=== PATIENT | male | born 1960 | race Caucasian/White ===

== ENCOUNTER 2020-03-23 20:12 | Emergency (ER) | payer OTHER, SELFPAY ==
[2020-03-23 20:14] VITALS: BP 171/95; PULSE 88; RESP 20; TEMP 36.7; O2SAT 99
--- NOTE | 2020-03-23 21:09 | ED.EXTPRO ---
HPI - Extremity Problem General Chief complaint: Extremity Problem,Nontraumatic Stated complaint: bruise on leg Time Seen by Provider: 03/23/20 20:39 History of Present Illness HPI Narrative: Patient is a 59-year-old male who presents the ER with bruising to the posterior thigh on the right side. Noticed it tonight. Noticed in the center area others induration and a scratch. No fevers or chills or sweats. No evidence of cellulitis. Patient denies any known trauma to the lower extremity over the last couple of weeks. The bruising is dark purple as well as yellow and green in areas and is circular in appearance. The central area in the bruise is free of any sort of bruising. It gives the appearance patient was struck with a circular object. There is an additional bruise to the lateral right calf. No lower extremity swelling. No history of blood clots. No chest pain or shortness of breath or loss of consciousness. Related Data Allergies Allergy/AdvReac Type Severity Reaction Status Date / Time No Known Allergies Allergy Verified 03/23/20 20:19 Review of Systems Review of Systems: All systems reviewed & are unremarkable except as noted in HPI and below Integumentary/Breasts: Comments: Right lower extremity bruising and abrasion PMFSH Past Medical History Medical History (Updated 03/23/20 @ 21:37 by Henrique Colmenares MD) No pertinent past medical history Surgical History Surgical History (Updated 03/23/20 @ 21:10 by Henrique Colmenares MD) No pertinent past surgical history Social History Social History (Updated 03/23/20 @ 21:10 by Henrique Colmenares MD) Smoking status: Never smoker Exam Narrative: Exam Narrative: GENERAL: Well-appearing, well-nourished, and in no acute distress. HEAD: Normocephalic, atraumatic. HEART: Regular rate and rhythm. Normal lower extremity pulses. EXTREMITIES: Normal range of motion. No edema. Right posterior thigh has a palpable cord beneath a abrasion in the center of the bruise. No cellulitis or abscess. Cord is nontender SKIN: Warm, dry, contusion posterior right thigh with a central area of clearing the size of a tennis ball. Bruising itself is dark purple with yellow/green the periphery. There is additional yellowing bruise to the right lateral calf no bigger than a nickel. NEURO: Alert and oriented x3. PSYCH: Normal mood and affect. Course Course Emergency Course: Spoke with patient's PCP. We will follow-up results from ultrasound. Patient should come back at 7 AM. Patient verbalized understanding. Vital Signs Vital signs: Vital Signs Temperature 98.0 F 03/23/20 20:14 Pulse Rate 88 03/23/20 20:14 Respiratory Rate 20 03/23/20 20:14 Blood Pressure 171/95 H 03/23/20 20:14 Pulse Oximetry 99 03/23/20 20:14 Temperature 98.0 F 03/23/20 20:14 Pulse Rate 88 03/23/20 20:14 Respiratory Rate 20 03/23/20 20:14 Blood Pressure 171/95 H 03/23/20 20:14 Pulse Oximetry 99 03/23/20 20:14 Discharge Plan Discharge Clinical Impression: Contusion of leg, right Patient Disposition: Home, Self-Care Condition: Stable Instructions: Contusion in Adults (ED) Additional Instructions: You have a bruise to your right thigh. The central area is hard and may represent a clotted off superficial vein. You are receiving a ultrasound tomorrow morning at 7 AM to rule out a deep vein thrombosis. The results will be sent to your primary care physician's office. If you do not hear about your results by noon you should contact your primary care doctor's office. Return to the ER immediately should you develop chest pain or shortness of breath, you cannot keep down food or water, or you have additional concerns. Other Ambulatory Orders: US venous doppler LE RT (Routine) Timeframe: [id number] Location: Determined by Patient Ordered By: Henrique Colmenares Follow-up/Referrals: PHYSICIAN NOT ON STAFF,NONSTAFF [Primary Care Provider] - 1 Da
--- NOTE | 2020-03-23 21:20 | PC.NURSE ---
Abbi Doppler of RLE Ultrasound ordered for 7am tomorrow
[2020-03-23 21:51] VITALS: BP 131/80; PULSE 80; RESP 19; TEMP 36.2; O2SAT 100
== END 2020-03-23 21:52 | disposition home or self-care (01) ==
PROVIDERS: Emergency Provider Emergency Medicine; PCP Internal Medicine
DX: S70.11XA Contusion of right thigh, initial encounter (principal); X58.XXXA Exposure to other specified factors, initial encounter
CPT/HCPCS: 99282

== ENCOUNTER 2020-03-24 06:37 | Outpatient (CLI) | payer OTHER, SELFPAY ==
--- NOTE | ~2020-03-24 | US_ITS ---
EXAMINATION: US venous doppler LE RT DATE: 03/24/2020 07:27 INDICATION: Right lower extremity swelling. TECHNIQUE: Grayscale ultrasound images without and with compression and Doppler ultrasound images of the right lower extremity veins were obtained. COMPARISON: None. FINDINGS: The visualized portions of right common femoral vein, profunda (deep) femoral vein, femoral vein, pop liteal vein, peroneal veins, posterior tibial veins, and greater saphenous vein outflow are patent. IMPRESSION: 1. No deep venous thrombosis. Reviewed, dictated and finalized at location A.
== END 2020-03-24 06:38 | disposition home or self-care (01) ==
PROVIDERS: Visit Provider Emergency Medicine
DX: S80.11XA Contusion of right lower leg, initial encounter (principal)
CPT/HCPCS: 93971

== ENCOUNTER 2025-02-10 14:12 | Outpatient (CLI) | payer OTHER, SELFPAY ==
--- NOTE | ~2025-02-10 | XR_ITS ---
EXAMINATION: XR chest 2V 02/10/2025 14:51 INDICATION: Rib pain after fall PROCEDURE: 2 view chest COMPARISON: No prior studies for comparison. FINDINGS: There is left basilar atelectasis. No focal pneumonia, edema, pleural effusion or pneumotho rax. The cardiomediastinal silhouette is within normal limits. There are no pleural effusions. Ther e is no pneumothorax suspected. IMPRESSION: 1: Left basilar atelectasis. Reviewed, dictated and finalized at location A.
--- NOTE | ~2025-02-10 | XR_ITS ---
XR shoulder LT min 2V 02/10/2025 14:51 Indication: Left shoulder pain Procedure: 5 views left shoulder Comparison: No prior studies for comparison. Findings: There is polyarticular osteoarthritis. No fracture, subluxation or dislocation. No signific ant soft tissue abnormality. No foreign. Impression: 1: Mild polyarticular osteoarthritis. Reviewed, dictated and finalized at location A. Impression: 1: Mild polyarticular osteoarthritis.
--- OUTSIDE RECORDS SUMMARY | 2025-02-10 14:49 | XMS_ITS | Referral Summary ---
Author Organization [facility] Address [address] [place] [address] Care Team Providers Care Harness Brusher Name Role Phone Michael Wiggins MD Primary Care Provider [phone] Encounters Date Type Department Care Team Description 02/10/2025 Nurse Triage [facility] Medical [facility] Internal Medicine [address] [place] [address] [address] [place] [phone] Michael Wiggins MD Acute pain of left shoulder (Primary Dx); Rib pain; Fall, initial encounter 02/01/2025 Results Follow-Up [facility] Nephrology at [address] [address] Elkin Juan MD 01/31/2025 Results Follow-Up [facility] Nephrology at [address] [address] Elkin Juan MD Stage 3a chronic kidney disease (HCC) (Primary Dx) 01/29/2025 Orders Only [facility] Nephrology at [address] [address] Elkin Juan MD 01/27/2025 10:30 AM CDT Office Visit [facility] Nephrology at [address] [address] Elkin Juan MD Stage 3a chronic kidney disease (HCC) (Primary Dx); Renal cysts, acquired, bilateral; Essential hypertension; Pancreas cyst; Obstructive sleep apnea 01/06/2025 Results Follow-Up [facility] Medical [facility] Nephrology at [address] [place] [address] Elkin Juan MD 01/04/2025 7:24 PM HOME ORGANIZER - 01/04/2025 11:59 PM HOME ORGANIZER Hospital Encounter [facility] MRI [address] [place] [address] Pancreas cyst Discharge Disposition: Discharge to home or self care 12/13/2024 4:15 PM HOME ORGANIZER Office Visit [facility] Internal Medicine [address] [place] [address] Michael Wiggins MD Dyslipidemia (Primary Dx); Hypertensive kidney disease; Morbid obesity (HCC); LON (obstructive sleep apnea); Stage 3a chronic kidney disease (HCC); BMI 36.0-36.9,adult; Encounter for immunization; Rotator cuff tear arthropathy of right shoulder; Prostate cancer screening 12/08/2024 Telephone [facility] Gastroenterology at [address] [place] [address] Elkin Juan MD from Last 3 Months Allergies No known active allergies Medications doxazosin (CARDURA) 4 mg tablet TAKE 1 TABLET DAILY 90 tablet 3 4 Active amLODIPine (NORVASC) 10 mg tablet TAKE 1 TABLET DAILY 90 tablet 3 4 Active olmesartan (BENICAR) 40 mg tablet Take 1 tablet (40 mg total) by mouth daily 90 tablet 3 4 05/05/20 25 Active traMADol-acetami nophen (ULTRACET) 37.5-325 mg per tablet Take 1 tablet by mouth every 6 (six) hours as needed for pain for pain 270 tablet 1 5 Active cholecalciferol (VITAMIN D-3) 2000 unit capsule Take 1 capsule (2,000 Units total) by mouth daily 90 capsule 3 5 01/28/20 26 Active sodium bicarbonate 650 mg tabletIndication s:Stage 3a chronic kidney disease (HCC) Take 2 tablets (1,300 mg total) by mouth 2 (two) times a day 5 02/04/20 26 Active cholecalciferol (VITAMIN D-3) 2000 unit capsule Take 1 capsule (2,000 Units total) by mouth daily 90 capsule 3 4 01/28/20 25 Discontinu ed(Reorder ) sodium bicarbonate 650 mg tablet 5 01/28/20 25 Discontinu ed(Reorder ) sodium bicarbonate 650 mg tablet Take 1 tablet (650 mg total) by mouth 3 (three) times a day 270 tablet 3 5 02/04/20 25 Discontinu ed(Reorder ) Active Problems Problem Noted Date Diagnosed Date Chronic bilateral low back pain without sciatica 07/05/2024 Assessment & Plan (07/05/2024 8:34 AM CDT): Patient with history of lumbar fusion. He continues to have chronic back pain. He takes tramadol as needed. I told him to start to cut down on the frequency of taking the medication and see how that works for him. Trigger finger, left index finger 10/06/2023 Trigger index finger of left hand 09/12/2023 Assessment & Plan (09/12/2023 8:22 AM CDT): Patient has left index trigger finger. Will make him hand surgery referral Stage 3a chronic kidney disease 05/12/2023 Assessment & Plan (12/13/2024 5:44 PM HOME ORGANIZER): Continue Farxiga. Avoid NSAIDs. Followed by the sap consultant Assessment & Plan (07/05/2024 7:26 AM CDT): Continue Farxiga. Avoid NSAIDs. Followed by the sap consultant Assessment & Plan (01/16/2024 7:40 AM HOME ORGANIZER): Continue Farxiga. Avoid NSAIDs. Followed by the sap consultant Assessment & Plan (09/12/2023 7:58 AM CDT): Continue Farxiga. Avoid NSAIDs. Followed by the sap consultant Assessment & Plan (05/12/2023 8:38 AM CDT): Patient with persistent chronic kidney disease. He increase fluid intake. He does not use NSAIDs. Will start him on Farxiga 10 mg daily. Will make him a referral to see a sap consultant for further evaluation. Open wound of finger with tendon injury 01/24/20 Overview (01/23/2023): Added automatically from request for surgery [id number] Trigger finger of right thumb 09/05/2022 Overview (09/05/2022): Added automatically from request for surgery [id number] Carpal tunnel syndrome, right 09/04/2022 Right wrist pain 09/04/2022 Morbid obesity 03/14/2022 Assessment & Plan (12/13/2024 5:44 PM HOME ORGANIZER): BMI Follow-up includes: nutrition counseling. The patient was advised to exercise 5 times a week for 30 minutes each time. We discussed low calorie diet. Discussed lifestyle changes. Assessment & Plan (07/05/2024 7:26 AM CDT): BMI Follow-up includes: nutrition counseling. The patient was advised to exercise 5 times a week for 30 minutes each time. We discussed low calorie diet. Discussed lifestyle changes. Assessment & Plan (01/16/2024 7:40 AM HOME ORGANIZER): BMI Follow-up includes: nutrition counseling. The patient was advised to exercise 5 times a week for 30 minutes each time. We discussed low calorie diet. Discussed lifestyle changes. Assessment & Plan (11/18/2022 8:59 AM HOME ORGANIZER): BMI Follow-up includes: nutrition counseling. The patient was advised to exercise 5 times a week for 30 minutes each time. We discussed low calorie diet. Discussed lifestyle changes. Assessment & Plan (03/14/2022 9:05 AM CDT): BMI Follow-up includes: nutrition counseling. The patient was advised to exercise 5 times a week for 30 minutes each time. We discussed low calorie diet. Discussed lifestyle changes. Complete rupture of rotator cuff 05/31/2021 Rotator cuff tear arthropathy of right shoulder 05/31/2021 Assessment & Plan (12/13/2024 5:44 PM HOME ORGANIZER): Patient will see a different orthopedic surgeon for 2nd opinion Assessment & Plan (11/18/2022 7:47 AM HOME ORGANIZER): Patient takes tramadol as needed. He was followed by orthopedic doctor. He is not interested in surgery at this time. LON (obstructive sleep apnea) 03/06/2021 Assessment & Plan (12/13/2024 5:44 PM HOME ORGANIZER): Patient uses CPAP machine on regular basis Assessment & Plan (07/05/2024 7:26 AM CDT): Patient uses CPAP machine on regular basis Assessment & Plan (01/16/2024 7:40 AM HOME ORGANIZER): Patient uses CPAP machine on regular basis Assessment & Plan (05/12/2023 8:38 AM CDT): Patient uses CPAP machine on regular basis Assessment & Plan (11/18/2022 7:46 AM HOME ORGANIZER): Patient uses CPAP machine on regular basis Assessment & Plan (08/06/2022 11:13 AM CDT): Continue to use CPAP machine Assessment & Plan (03/14/2022 9:05 AM CDT): Patient uses CPAP machine on regular basis Assessment & Plan (08/31/2021 10:42 AM CDT): Patient uses CPAP machine on regular basis Assessment & Plan (03/06/2021 9:00 AM CDT): Patient uses CPAP machine on regular basis Carpal tunnel syndrome, bilateral 10/11/2020 Overview (05/17/2024): Status post bilateral carpal tunnel release Right carpal tunnel syndrome 10/11/2020 Assessment & Plan (03/06/2021 9:00 AM CDT): Status post carpal tunnel surgery Right shoulder tendinitis 09/05/2020 Assessment & Plan (07/05/2024 7:27 AM CDT): Patient is followed by orthopedic doctor. He wants to wait on surgery. He takes tramadol as needed with good relief Assessment & Plan (03/06/2021 8:59 AM CDT): Patient is followed by orthopedic doctor. He wants to wait on surgery. He takes tramadol as needed with good relief Assessment & Plan (09/05/2020 9:55 AM CDT): We ordered MRI of the right shoulder for further evaluation and further recommendations will depend on the result of the MRI Trigger ring finger of right hand 09/05/2020 Assessment & Plan (09/05/2020 9:56 AM CDT): The patient received steroid injection in the tendon sheath of the right ring finger and he tolerated the procedure well. The patient will call us in 1 week for persistent symptoms. Bruise 03/28/2020 Assessment & Plan (03/28/2020 10:21 AM CDT): Bruise in the right thigh secondary to injury and it is healing and no further intervention is needed Chronic pain of both shoulders 03/28/2020 Assessment & Plan (01/16/2024 8:42 AM HOME ORGANIZER): Patient is maintained on tramadol p.r.n. with good relief Assessment & Plan (09/12/2023 7:57 AM CDT): Patient is maintained on tramadol p.r.n. with good relief Assessment & Plan (08/28/2020 12:10 PM CDT): Will obtain x-ray of the right shoulder and will start him on physical therapy and he will continue with tramadol as needed for pain and the patient will call us for persistent symptoms Assessment & Plan (03/28/2020 10:21 AM CDT): Patient takes tramadol with good relief. Hypertensive kidney disease 06/08/2018 Assessment & Plan (12/13/2024 5:43 PM HOME ORGANIZER): Continue current medications. Discussed low-salt diet. Discussed exercise on regular basis. Will continue to monitor Assessment & Plan (07/05/2024 7:26 AM CDT): Continue current medications. Discussed low-salt diet. Discussed exercise on regular basis. Will continue to monitor Assessment & Plan (01/16/2024 7:39 AM HOME ORGANIZER): Continue current medications. Discussed low-salt diet. Discussed exercise on regular basis. Will continue to monitor Assessment & Plan (09/12/2023 7:57 AM CDT): Continue current medications. Discussed low-salt diet. Discussed exercise on regular basis. Will continue to monitor Assessment & Plan (05/12/2023 8:37 AM CDT): Continue current medications. Discussed low-salt diet. Discussed exercise on regular basis. Will continue to monitor Assessment & Plan (11/18/2022 7:46 AM HOME ORGANIZER): Continue current medications. Discussed low-salt diet. Discussed exercise on regular basis. Will continue to monitor Assessment & Plan (08/06/2022 11:13 AM CDT): Continue current medications. Discussed low-salt diet. Discussed exercise on regular basis. Will continue to monitor Assessment & Plan (03/14/2022 9:05 AM CDT): Continue current medications. Discussed low-salt diet. Discussed exercise on regular basis. Will continue to monitor Assessment & Plan (08/31/2021 10:42 AM CDT): Continue current medications. Discussed low-salt diet. Discussed exercise on regular basis. Will continue to monitor Assessment & Plan (03/06/2021 8:59 AM CDT): Continue current medications. Discussed low-salt diet. Discussed exercise on regular basis. Will continue to monitor Assessment & Plan (08/28/2020 12:11 PM CDT): We stopped lisinopril hydrochlorothiazide because of elevated creatinine. We will start him on Benicar and he will continue with other medications Assessment & Plan (03/28/2020 10:21 AM CDT): Continue current medications. Discussed low-salt diet. Discussed exercise on regular basis. Will continue to monitor Assessment & Plan (08/30/2019 8:15 AM CDT): Continue current medications. Discussed low-salt diet. Discussed exercise on regular basis. Will continue to monitor Assessment & Plan (02/23/2019 8:46 AM CDT): Continue current medications. Discussed low-salt diet. Discussed exercise on regular basis. Will continue to monitor Anxiety 08/09/2016 Assessment & Plan (01/16/2024 7:39 AM HOME ORGANIZER): Asymptomatic Assessment & Plan (05/12/2023 8:37 AM CDT): Asymptomatic Assessment & Plan (03/14/2022 9:05 AM CDT): Stable without medication Assessment & Plan (08/31/2021 10:42 AM CDT): Stable without medications Assessment & Plan (03/06/2021 8:59 AM CDT): Patient with anxiety. Will start him on Cymbalta 20 mg daily and will evaluate him again in few months Assessment & Plan (02/23/2019 8:45 AM CDT): Stable off medications Dyslipidemia 08/09/2016 Assessment & Plan (12/13/2024 5:43 PM HOME ORGANIZER): Continue low-fat diet and exercise Assessment & Plan (01/16/2024 7:39 AM HOME ORGANIZER): Continue low-fat diet and exercise Assessment & Plan (05/12/2023 8:37 AM CDT): Continue low-fat diet and exercise Assessment & Plan (11/18/2022 7:46 AM HOME ORGANIZER): Controlled on current medications. Continue low-fat diet. Will continue to monitor . Assessment & Plan (08/06/2022 11:13 AM CDT): Continue low-fat diet and continue to exercise on regular basis Assessment & Plan (03/14/2022 9:05 AM CDT): Advised low-fat diet and weight loss and exercise on regular basis Assessment & Plan (08/31/2021 10:42 AM CDT): Continue low-fat diet and we discussed the importance of weight loss with diet and exercise Assessment & Plan (03/06/2021 8:59 AM CDT): Continue low-fat diet Assessment & Plan (08/28/2020 12:13 PM CDT): Controlled on low-fat diet and exercise Assessment & Plan (03/28/2020 10:20 AM CDT): Controlled continue low-fat diet and we discussed the importance of weight loss Assessment & Plan (08/30/2019 8:15 AM CDT): Continue low-fat diet and exercise on regular basis. Assessment & Plan (02/23/2019 8:46 AM CDT): Continue low-fat diet and we discussed weight loss Numbness of right hand 08/09/2016 Assessment & Plan (08/06/2022 11:13 AM CDT): Patient most likely has carpal tunnel syndrome. I recommended that he uses a wrist brace. Will obtain nerve conduction study and if it is positive will make him a referral to see hand surgeon Assessment & Plan (08/28/2020 12:11 PM CDT): The patient most likely has carpal tunnel syndrome. He was advised to use wrist brace and we will order ENG-EMG study for further evaluation ED (erectile dysfunction) 08/09/2016 Immunizations Immunization Administration Dates Next Due Influenza, Quadrivalent, Spl it, Preservative Free, Intramuscular 08/06/2022,08/31/2021,08/28/2020,08/30 Tdap 01/20/2023,03/14/2022 Social History Tobacco Use Types Packs/Day Years Used Date Smoking Tobacco: Never Passive Smoke Exposure: Never Smokeless Tobacco: Never Tobacco Cessation:Counseling Given: Not Answered Alcohol Use Standard Drinks/Week Comments Not Currently 0 (1 standard drink = 0.6 oz pur e alcohol) AUDIT-C Answer Date Recorded Q1: How often do you have a drink containing alcohol? Never 12/13/2024 Q2: How many drinks containi ng alcohol do you have on a typical day when you are drinking? Patient does not drink Q3: How often do you have si x or more drinks on one occasion? Never 12/13/2024 PHQ-2 Answer Date Recorded PHQ-2 Total Score (If total score is 3 or more points, staff should administer the PHQ-9) 0 12/13/2024 Personal Safety Answer Date Recorded Have you ever been in or are you currently in a harmful physical or emotional relationship or is someone making you feel afraid or unsafe? 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 on file Not on f ile Last Filed Vital Signs Vital Sign Reading Time Taken Comments Blood Pressure 126/80 01/27/2025 10:14 AM CDT Pulse 73 01/27/2025 10:14 AM CDT Temperature 36.1 C (97 F) 01/27/2025 10:14 AM CDT Respiratory Rate 16 12/13/2024 4:16 PM HOME ORGANIZER Oxygen Saturation 98% 12/13/2024 4:16 PM HOME ORGANIZER Inhaled Oxygen Concentration - - Weight 113.4 kg (250 lb) 01/27/2025 10:14 AM CDT Height 177.8 cm (5' 10 ) 01/27/2025 10:14 AM CDT Body Mass Index 35.87 01/27/2025 10:14 AM CDT Plan of Treatment Not on file Procedures Procedure Name Priority Date/Time Associated Diagnosis Comments ALBUMIN CREATININE RATIO, URINE Routine 01/31/2025 9:54 AM CDT Renal cysts, acquired, bilateral RENAL FUNCTION PANEL Routine 01/31/2025 9:54 AM CDT Renal cysts, acquired, bilateral URINALYSIS AND REFLEX TO MICROSCOPIC AND CULTURE Routine 01/31/2025 9:54 AM CDT Renal cysts, acquired, bilateral MICROSCOPIC EXAMINATION Routine 01/29/2025 8:43 AM CDT ALBUMIN CREATININE RATIO, URINE Routine 01/29/2025 8:43 AM CDT RENAL FUNCTION PANEL Routine 01/29/2025 8:43 AM CDT URINALYSIS AND REFLEX TO MICROSCOPIC AND CULTURE Routine 01/29/2025 8:43 AM CDT HEPATIC FUNCTION PANEL Routine 01/29/2025 8:39 AM CDT Dyslipidemia PSA SCREEN Routine 01/29/2025 8:39 AM CDT Prostate cancer screening LIPID PANEL Routine 01/29/2025 8:39 AM CDT Dyslipidemia MRI ABDOMEN W WO CONTRAST Schedule Routine, Read Routine (OP Routine) 01/04/2025 8:25 PM HOME ORGANIZER Pancreas cyst STOOL DNA COLOGUARD Routine 02/27/2022 8:00 AM CDT Colon cancer screening HEPATITIS C ANTIBODY Routine 12/20/2021 9:03 AM HOME ORGANIZER Encounter for hepatitis C screening test for low risk patient HM COLONOSCOPY Routine 08/30/2010 from Last 3 Months or Most Recently Relevant to Health Maintenance Results * (ABNORMAL) Albumin Creatinine Ratio, Urine (01/31/2025 9:54 AM CDT) Urine us Elkin Juan MD LAB URINE ORDERABLES Final Resu lt Performing Organization Address [facility]/ZIP Co de Phone Number [facility] * (ABNORMAL) Renal function panel (01/31/2025 9:54 AM CDT) Blood us Elkin Juan MD LAB BLOOD ORDERABLES Final Resu lt Performing Organization Address [facility]/ZIP Co de Phone Number [facility] * (ABNORMAL) Urinalysis reflex to microscopic and culture Urine (01/31/2025 9:54 AM CDT) Urine us Elkin Juan MD LAB MICROBIOLOGY - [facility] Final Result Performing Organization Address [facility] Co de Phone Number [facility] * Microscopic Examination (01/29/2025 8:43 AM CDT) WBC, ur None seen 0 - 5 /hpf [facility] - 01 RBC, ur None seen 0 - 2 /hpf [facility] - 01 Epithelial cells, non-renal, ur None seen 0 - 10 /hpf [facility] - 01 Casts None seen None seen /lpf [facility] - 01 Bacteria, ur None seen None seen/Few [facility] - 01 01/29/2025 8:43 AM CDT 01/29/2025 Narrative [facility] - 01/30/2025 8:09 AM CDT Performed at: 01 - [facility] [address] [id number] Layup Worker: Ricardo Obrien PhD, Phone: [phone] us Elkin Juan MD LAB BLOOD ORDERABLES Final Resu lt LABCO [facility] - * (ABNORMAL) Urinalysis reflex to microscopic and culture (01/29/2025 8:43 AM CDT) Pathologist [facility] Specific Mcintosh 1.025 1.005 - 1.030 [facility] - 01 pH, ur 5.5 5.0 - 7.5 [facility] - 01 Color, ur Yellow Yellow [facility] - 01 Appearance, ur Clear Clear [facility] - 01 Leukocyte esterase, ur Negative Negative [facility] - 01 Protein, ur 2+(A) Negative/Tra ce [facility] - 01 Glucose, ur Negative Negative [facility] - 01 Ketones, ur Negative Negative [facility] - 01 Blood, ur Negative Negative [facility] - 01 Bilirubin, ur Negative Negative [facility] - 01 Urobilinogen, quant, ur 0.2 0.2 - 1.0 mg/dL [facility] - 01 Nitrites, ur Negative Negative [facility] - 01 Urinalysis, microscopic exam See below: [facility] - 01 Comment:Microscopic was darin cated and was performed. Urinalysis Comment [facility] - 01 Comment:This specimen will n ot reflex to a Urine Culture. 01/29/2025 8:43 AM CDT 01/29/2025 Narrative [facility] - 01/30/2025 8:09 AM CDT Performed at: [facility] [address] [id number] Layup Worker: Ricardo Obrien PhD, Phone: [phone] us Elkin Juan MD LAB MICROBIOLOGY - [facility] Final Result [facility] - * (ABNORMAL) Albumin Creatinine Ratio, Urine (01/29/2025 8:43 AM CDT) Creatinine ur 213.1 Not Estab. mg/dL [facility] - 01 Microalbumin, ur 566.0 Not Estab. ug/mL [facility] - 01 Comment: Results confirmed on dilution. Microalbumin/cr eat ratio 266(H) 0 - 29 mg/g creat [facility] - 01 Comment: Normal: 0 - 29 Moderately increased: 30 - 300 Severely increased: >300 01/29/2025 8:43 AM CDT 01/29/2025 Narrative [facility] - 01/30/2025 8:09 AM CDT Performed at: [address] [place] [id number] Layup Worker: Ricardo Obrien PhD, Phone: [phone] us Elkin Juan MD LAB URINE ORDERABLES Final Resu lt [facility] 01 * (ABNORMAL) Renal function panel (01/29/2025 8:43 AM CDT) Pathologist [facility] Glucose 94 70 - 99 mg/dL [facility] - 01 BUN 23 8 - 27 mg/dL [facility] - 01 Creatinine, Serum 1.51(H) 0.76 - 1.27 mg/dL [facility] - 01 eGFR 51(L) >59 mL/min/1.7 3 [facility] - 01 BUN/creat ratio 15 10 - 24 [facility] - 01 Sodium 141 134 - 144 mmol/L [facility] - 01 Potassium, sr 4.7 3.5 - 5.2 mmol/L [facility] - 01 Chloride 108(H) 96 - 106 mmol/L [facility] - 01 CO2 17(L) 20 - 29 mmol/L [facility] - 01 Calcium 9.6 8.6 - 10.2 mg/dL [facility] - 01 Phosphorus, sr 2.9 2.8 - 4.1 mg/dL [facility] - 01 Albumin 4.5 3.9 - 4.9 g/dL [facility] - 01 01/29/2025 8:43 AM CDT 01/29/2025 Narrative [facility] - 01/30/2025 7:08 AM CDT Performed at: [facility] [id number] Layup Worker: Ricardo Obrien PhD, Phone: [phone] us Elkin Juan MD LAB BLOOD ORDERABLES Final Resu lt Performing Organization Address [facility] Co de Phone Number [facility] - * PSA screen (01/29/2025 8:39 AM CDT) Pathologist [facility] PSA 1.1 0.0 - 4.0 ng/mL [facility] - 01 Comment: Sergio ECLIA methodology. According to the [place] [employer], Serum PSA should decrease and remain at undetectable levels after radical prostatectomy. The AUA defines biochemical recurrence as an initial PSA value 0.2 ng/mL or greater followed by a subsequent confirmatory PSA value 0.2 ng/mL or greater. Values obtained with different assay methods or kits cannot be used interchangeably. Results cannot be interpreted as absolute evidence of the presence or absence of malignant disease. Blood 01/29/2025 8:39 AM CDT 01/29/2025 Narrative [facility] - 01/30/2025 9:09 AM CDT Performed at: [facility] [id number] Layup Worker: Ricardo Obrien PhD, Phone: [phone] Michael Wiggins MD LAB BLOOD ORDERABLES Final Result Performing Organization Address [facility] Co de Phone Number [facility] * Hepatic function panel (01/29/2025 8:39 AM CDT) Protein, sr 7.2 6.0 - 8.5 g/dL [facility] - 01 Albumin 4.6 3.9 - 4.9 g/dL [facility] - 01 Bilirubin, Total 0.4 0.0 - 1.2 mg/dL [facility] - 01 Bilirubin, direct 0.15 0.00 - 0.40 mg/dL [facility] - 01 Alk phos 72 44 - 121 IU/L [facility] - 01 AST 16 0 - 40 IU/L [facility] - 01 ALT 17 0 - 44 IU/L [facility] - 01 Blood 01/29/2025 8:39 AM CDT 01/29/2025 Narrative [facility] - 01/30/2025 9:09 AM CDT Performed at: [address] [place] [id number] Layup Worker: Ricardo Obrien PhD, Phone: [phone] Michael Wiggins MD LAB BLOOD ORDERABLES Final Result Performing Organization Address [facility] Co de Phone Number [facility] - * (ABNORMAL) Lipid panel (01/29/2025 8:39 AM CDT) [facility] Cholesterol 202(H) 100 - 199 mg/dL [facility] - 01 Triglycerides 118 0 - 149 mg/dL [facility] - 01 HDL Cholesterol 42 >39 mg/dL [facility] - 01 VLDL 21 5 - 40 mg/dL [facility] - 01 LDL, calculated 139(H) 0 - 99 mg/dL [facility] - 01 Blood 01/29/2025 8:39 AM CDT 01/29/2025 Narrative [facility] - 01/30/2025 9:09 AM CDT Performed at: [facility] [id number] Layup Worker: Rciardo Obrien PhD, Phone: [phone] Michael Wiggins MD LAB BLOOD ORDERABLES Final Result Performing Organization Address [facility] Co de Phone Number [facility] - * MRI Abdomen W WO Contrast (01/04/2025 8:25 PM HOME ORGANIZER) Anatomical Region Laterality Modality Body N/A Magnetic Resonan ce 01/06/2025 10:4 3 AM HOME ORGANIZER Narrative 01/06/2025 10:55 AM HOME ORGANIZER EXAM DESCRIPTION: MRI ABDOMEN W WO CONTRAST REASON FOR STUDY: Renal mass/cyst, indeterminate, follow up kidney and pancreas cysts TECHNIQUE: MRI of the abdomen performed without and with intravenous contrast according to the renal protocol. All images stored on PACS. CONTRAST TYPE/DOSE: 20mL of GADOTERATE MEGLUMINE 0.5 MMOL/ML INTRAVENOUS SOLUTION (SO) injected via intravenous COMPARISON: MRI abdomen 11/01/2023 REFERENCE: Per ACR white paper recommendations, unless otherwise specified no follow-up imaging is recommended for incidental renal and adrenal lesions per consensus recommendations based on imaging criteria. Further lab evaluation could be pursued based on clinical findings. FINDINGS: LOWER CHEST: No effusion. LIVER: Normal size. No mass. No cysts. GALLBLADDER: No stones, wall thickening or pericholecystic fluid. BILE DUCTS: No intrahepatic or extrahepatic ductal dilatation. SPLEEN: Normal size. No focal lesions. PANCREAS: Stable T2 hyperintense nonenhancing cystic lesions measuring 1.1 cm in the body of the pancreas (401/31), 0.7 cm of the tail of the pancreas (301/4), previously 0.8 cm. No new or solid lesion. No adjacent inflammation or peripancreatic fluid collections. Pancreatic duct not dilated ADRENALS: Normal. KIDNEYS/URINARY TRACT: Bilateral T2 hyperintense nonenhancing renal cysts. In the lower pole of the left kidney, there is a 1.3 cm T2 hyperintense/T1 hypointense cyst containing minimally thickened enhancing wall (301/19, 801/113)-Bosniak 2F. No hydronephrosis or hydroureter. Symmetric enhancement. GI: No visualized abnormality. PERITONEUM: No ascites. RETROPERITONEUM: No mass or adenopathy. VASCULATURE: No abdominal aortic aneurysm. MUSCULOSKELETAL: No acute findings. OTHER: No other abnormality. IMPRESSION: Stable pancreatic cystic lesions, likely side branch IPMN. Continued attention to follow-up. Stable bilateral Bosniak 1 renal cysts. Stable size Bosniak 2F cyst in the lower pole of the left kidney. Attention on follow-up. THIS IS AN ELECTRONICALLY VERIFIED FINAL REPORT 01/06/2025 10:55 AM - Electronically signed by Debbie Leal M.D. FT T: Report ID: [id number] Reading Location: [place] [address] Procedure Note Debbie Ignacio MD - 01/06/2025 EXAM DESCRIPTION: MRI ABDOMEN W WO CONTRAST REASON FOR STUDY: Renal mass/cyst, indeterminate, follow up kidney and pancreas cysts TECHNIQUE: MRI of the abdomen performed without and with intravenous contrast according to the renal protocol. All images stored on PACS. CONTRAST TYPE/DOSE: 20mL of GADOTERATE MEGLUMINE 0.5 MMOL/ML INTRAVENOUS SOLUTION (SO) injected via intravenous COMPARISON: MRI abdomen 11/01/2023 REFERENCE: Per ACR white paper recommendations, unless otherwise specifiedno follow-up imaging is recommended for incidental renal and adrenal lesionsper consensus recommendations based on imaging criteria. Further labevaluation could be pursued based on clinical findings. FINDINGS: LOWER CHEST: No effusion. LIVER: Normal size. No mass. No cysts. GALLBLADDER: No stones, wall thickening or pericholecystic fluid. BILE DUCTS: No intrahepatic or extrahepatic ductal dilatation. SPLEEN: Normal size. No focal lesions. PANCREAS: Stable T2 hyperintense nonenhancing cystic lesions measuring1.1 cm in the body of the pancreas (401/31), 0.7 cm of the tail of thepancreas (301/4), previously 0.8 cm. No new or solid lesion. No adjacentinflammation or peripancreatic fluid collections. Pancreatic duct not dilated ADRENALS: Normal. KIDNEYS/URINARY TRACT: Bilateral T2 hyperintense nonenhancing renalcysts. In the lower pole of the left kidney, there is a 1.3 cm T2 hyperintense/T1 hypointense cyst containing minimally thickened enhancing wall (301/19, 801/113)-Bosniak 2F. No hydronephrosis or hydroureter. Symmetric enhancement. GI: No visualized abnormality. PERITONEUM: No ascites. RETROPERITONEUM: No mass or adenopathy. VASCULATURE: No abdominal aortic aneurysm. MUSCULOSKELETAL: No acute findings. OTHER: No other abnormality. IMPRESSION: Stable pancreatic cystic lesions, likely side branch IPMN. Continued attention to follow-up. Stable bilateral Bosniak 1 renal cysts. Stable size Bosniak 2F cyst in the lower pole of the left kidney.Attention on follow-up. THIS IS AN ELECTRONICALLY VERIFIED FINAL REPORT 01/06/2025 10:55 AM - Electronically signed by Debbie Leal M.D. FT T: Report ID: [id number] Reading Location: [place] [address] Elkin Juan MD IMG MRI PROCEDURES Final Result * Stool DNA - Cologuard (02/27/2022 8:00 AM CDT) Stool DNA - Cologuard Negative Negative [employer] (CLIA #:[id number]) Comment: NEGATIVE TEST RESULT. A negative Cologuard result indicates a low likelihood that a colorectal cancer (CRC) or advanced adenoma (adenomatous polyps with more advanced pre-malignant features) is present. The chance that a person with a negative Cologuard test has a colorectal cancer is less than 1 in 1500 (negative predictive value >99.9%) or has an advanced adenoma is less than 5.3% (negative predictive value 94.7%). These data are based on a prospective cross-sectional study of 10,000 individuals at average risk for colorectal cancer who were screened with both Cologuard and colonoscopy. (Mike Reid. et al, N Engl J Med 2014;370(14):6403-4804) The normal value (reference range) for this assay is negative. COLOGUARD RE-SCREENING RECOMMENDATION: Periodic colorectal cancer screening is an important part of preventive healthcare for asymptomatic individuals at average risk for colorectal cancer. Following a negative Cologuard result, the [place] [employer] Society and U.S. Multi-Society Task Force screening guidelines recommend a Cologuard re-screening interval of 3 years. References: [place] [employer] Guideline for Colorectal Cancer Screening: https://www.cancer.org/cancer/cazux-tcbvkm-ilulfp/iftwlrbrs-cljkarwvj-wlmaivy/ac s-rec ommendations.html.; Mike NIÑO, Steph YORK, Kenny GunnK, Colorectal Cancer Screening: Recommendations for Physicians and Patients from the U.S. Multi-Society Task Force on Colorectal Cancer Screening , Am J Gastroenterology 2017; 112:4373-9320. TEST DESCRIPTION: Composite algorithmic analysis of stool DNA-biomarkers with hemoglobin immunoassay. Quantitative values of individual biomarkers are not reportable and are not associated with individual biomarker result reference ranges. Cologuard is intended for colorectal cancer screening of adults of either sex, 45 years or older, who are at average-risk for colorectal cancer (CRC). Cologuard has been approved for use by the U.S. FDA. The performance of Cologuard was established in a cross sectional study of average-risk adults aged 50-84. Cologuard performance in patients ages 45 to 49 years was estimated by sub-group analysis of near-age groups. Colonoscopies performed for a positive result may find as the most clinically significant lesion: colorectal cancer [4.0%], advanced adenoma (including sessile serrated polyps greater than or equal to 1cm diameter) [20%] or non- advanced adenoma [31%]; or no colorectal neoplasia [45%]. These estimates are derived from a prospective cross-sectional screening study of 10,000 individuals at average risk for colorectal cancer who were screened with both Cologuard and colonoscopy. (Mike Reid. et al, N Engl J Med 2014;370(14):4536-5458.) Cologuard may produce a false negative or false positive result (no colorectal cancer or precancerous polyp present at colonoscopy follow up). A negative Cologuard test result does not guarantee the absence of CRC or advanced adenoma (pre-cancer). The current Cologuard screening interval is every 3 years. ([place] [employer] and U.S. Multi-Society Task Force). Cologuard performance data in a 10,000 patient pivotal study using colonoscopy as the reference method can be accessed at the following location: www.[employer]/results. Additional description of the Cologuard test process, warnings and precautions can be found at www.cologuard.com. Stool 02/27/2022 8:00 AM CDT 03/01/2022 11:32 AM CDT us Michael Wiggins MD LAB BODY FLUIDS AND STOOLS ORDERABLES Final Result [facility] (CLIA #:[id number]) [place] [place] [address] * Hepatitis C antibody (12/20/2021 9:03 AM HOME ORGANIZER) Hep C Ab 0.1 0.0 - 0.9 s/co ratio [facility] - 01 Comment: Negative: < 0.8 Indeterminate: 0.8 - 0.9 Positive: > 0.9 The CDC recommends that a positive HCV antibody result be followed up with a HCV Nucleic Acid Amplification test (956464). Blood specimen (specimen) 12/20/2021 9:03 AM HOME ORGANIZER 12/20/2021 Narrative [facility] - 12/21/2021 9:11 AM HOME ORGANIZER Performed at: 01 - [facility] [address] [id number] Layup Worker: Ricardo Obrien PhD, Phone: [phone] Michael Wiggins MD LAB MICROBIOLOGY - GENERAL ORDERABLES Final Result [facility] - 01 * COLONOSCOPY (08/30/2010) Pathologist [facility] Colonoscopy Unknown us Historical Provider HEALTH MAINTENANCE Final Result from Last 3 Months or Most Recently Relevant to Health Maintenance Insurance [facility] [employer] [facility] HMO/PPO Address: [facility] [id number] [place] [phone] Care Teams Harness Brusher Relationship Specialty Start Date End Date Michael Wiggins MD [address] [facility] [address] [place] [id number] PCP - General Internal Medicine 02/18/19
--- OUTSIDE RECORDS SUMMARY | 2025-02-10 14:49 | XMS_ITS | Encounter Summary ---
Author Organization [facility] Healthcare Address [address] [place] [address] Care Team Providers Care Human Resources Project Manager Name Role Phone Michael Wiggins MD Primary Care Provider [phone] Reason for Referral * Diagnostic Imaging (Routine) - Authorized Specialty Diagnoses / Procedures Referred By Contac t Referred To Contact Diagnoses Acute pain of left shoulder Fall, initial encounter Procedures XR Shoulder Left 2 or More Views Michael Wiggins MD [address] [place] [address] [address] [place] [id number] Phone: tel: fax: External Order Referral ID Status Reason Start Date Expiration Date V isits Requested Visits Authorized [id number] Authorized 02/10/2025 03/12/2026 1 1 Reason for Visit * Reason Onset Date Comments Shoulder Injury 02/10/2025 Encounter Details Date Type Department Care Team (Late st Contact Info) Description 02/10/2025 Nurse Triage [facility] Medical [facility] Internal Medicine [address] [facility] [address] [place] [phone] Michael Wiggins MD [address] [place] [address] [address] [place] [id number] Acute pain of left shoulder (Primary Dx); Rib pain; Fall, initial encounter Social History Tobacco Use Types Packs/Day Years Used Date Smoking Tobacco: Never Passive Smoke Exposure: Never Smokeless Tobacco: Never Alcohol Use Standard Drinks/Week Comments Not Currently [...] on file 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 Wiggins had already said it was ok to order. We were just checking if ortho would order the xray since they will be following up on the results. Once orders are signed I will fax to Km. I called and notified patient. He is requesting a call when the orders are faxed. * Telephone Encounter - Becca Murdock MA - 02/10/2025 11:52 AM CDT Okay for Xray order? * Telephone Encounter - Lauren Manuel - 02/10/2025 10:58 AM CDT Additional Services or Orders Type of Service Requested:Testing Reason for Request (e.g. condition/symptom, date of COVID exposure if applicable): Shoulder Injury and Left Rib Cage Details Regarding Additional Services (e.g. type of home health, type of equipment, type of test, etc.): X-ray Where will services be performed? (if outside of the practice, facility name, address, phone/fax offacility): [facility] Additional Comments: Patient returning call, states that Ortho would like PCP to order XRay and then send results to them [facility] Please place order and let patient know once its in. Does message need to be routed? Yes-Action Needed * Telephone Encounter - Barbi Storey LPN - 02/10/2025 10:54 AM CDT I spoke with patient. I advised him to contact his ortho provider and see I they will order the xray for him. He is going to call them and call back if they will not order the test. * Telephone Encounter - Guerline Naidu - 02/10/2025 9:33 AM CDT Call Back Caller???s Concern: patient aware. He would like to have the xray done at [facility] in [place]. Please call him and let him now when order has been sent. Does message need to be routed? Yes-Action Needed * Telephone Encounter - Michael Wiggins MD - 02/10/2025 9:15 AM CDT Okay for x-ray of the shoulder. Patient is followed by orthopedic doctor and I just received a notefrom that doctor so why does not he call him. 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 Reports pain to the top of his left shoulder that radiates down into his back around the shoulder blade and rib cage area. Denies SOB, but states area is aching with inhaling. No noticeable bruising, swelling or deformity noted. Unable to lift arm. Denies pain radiates down arm towards hand. Advised ER or UC. Would like to seed if provider would be willing to order an x-ray. He also stated that he has been following with an orthopedic provider, Dr. Álvarez, and will call that office as well. Advised ER or UC if symptoms worsen, or unable to have x-ray ordered or be seen in office today. Advised immobilizing arm with sling if available, ice/heat and OTC pain medications as needed. Call back with further questions or concerns. Please reach out to patient regarding request for x-ray for left shoulder s/p fall yesterday. States does not want to go through work comp. Sending HP as sound recording technician recommended ER, UC or PCP office with PCP approval. States he is also going to contact his orthopedic doctor as well. Reason for Disposition Can't move injured shoulder at all Protocols used: Shoulder [id number]-FW * Telephone Encounter - Avril Santiago RN - 02/10/2025 8:12 AM CDT Regarding: Fall and injured left shoulder ----- Message from Shelley Jackson sent at 02/10/2025 8:11 AM CDT ----- Symptom Based Call Chief Complaint(s): Fall and injured left shoulder Duration: 02/09/2025 What type of symptom(s) is the patient experiencing? Red Flag. Is the patient concerned they are experiencing a medical emergency requiring an ambulance? No Additional Comments: Patient fell while at work yesterday and injured his left shoulder. States theleft side near the back of his shoulder blade along the left side and rib area feels achy and hurtsto breathe. Does message need to be routed? Yes-Action Needed documented in this encounter Plan of Treatment Scheduled Orders Name Type Priority Associated Diagnoses Orde r Schedule XR Shoulder Left 2 or More Views Imaging Schedule Routine, Read Routine (OP Routine) Acute pain of left shoulder Fall, initial encounter Expected: 02/10/2025, Expires: 02/10/2026 XR Chest PA Lateral 2 Views Imaging Schedule Routine, Read Routine (OP Routine) Rib pain Fall, initial encounter Expected: 02/10/2025, Expires: 02/10/2026 documented as of this encounter Visit Diagnoses Diagnosis Acute pain of left shoulder- Primary Rib pain Unspecified chest pain Fall, initial encounter documented in this encounter Care Teams Human Resources Project Manager Relationship Specialty Start Date End Date Michael Wiggins MD [facility] [address] [place] [id number] PCP - General Internal Medicine 02/18/19 documented as of this encounter
--- OUTSIDE RECORDS SUMMARY | 2025-02-10 14:49 | XMS_ITS | Clinical Summary ---
Author Organization [facility] Office Center Address [address] [place] [address] Care Team Providers Care Wire Preparation Worker Name Role Phone Michael Wiggins MD Primary Care Provider [phone] Allergies No known active allergies Medications doxazosin [...] 05/12/2023 Assessment & Plan (12/13/2024 5:44 PM DIRECTOR OF INSTITUTIONAL SALES): Continue Farxiga. Avoid NSAIDs. Followed by the machining associate Assessment & Plan (07/05/2024 7:26 AM CDT): Continue Farxiga. Avoid NSAIDs. Followed by the machining associate Assessment & Plan (01/16/2024 7:40 AM DIRECTOR OF INSTITUTIONAL SALES): Continue Farxiga. Avoid NSAIDs. Followed by the machining associate Assessment & Plan (09/12/2023 7:58 AM CDT): Continue Farxiga. Avoid NSAIDs. Followed by the machining associate Assessment & Plan (05/12/2023 8:38 AM CDT): Patient with persistent chronic kidney disease. He increase fluid intake. He does not use NSAIDs. Will start him on Farxiga 10 mg daily. Will make him a referral to see a machining associate for further evaluation. Open wound of finger with tendon injury 01/24/20 23 Overview (01/23/2023): Added automatically from request for surgery [id number] Trigger finger of right thumb 09/05/2022 Overview (09/05/2022): Added automatically from request for surgery [id number] Carpal tunnel syndrome, right 09/04/2022 Right wrist pain 09/04/2022 Morbid obesity 03/14/2022 Assessment & Plan (12/13/2024 5:44 PM DIRECTOR OF INSTITUTIONAL SALES): BMI Follow-up includes: nutrition counseling. The patient [...] changes. Assessment & Plan (01/16/2024 7:40 AM DIRECTOR OF INSTITUTIONAL SALES): BMI Follow-up includes: nutrition counseling. The patient was advised to exercise 5 times a week for 30 minutes each time. We discussed low calorie diet. Discussed lifestyle changes. Assessment & Plan (11/18/2022 8:59 AM DIRECTOR OF INSTITUTIONAL SALES): BMI Follow-up includes: nutrition counseling. The patient [...] 05/31/2021 Assessment & Plan (12/13/2024 5:44 PM DIRECTOR OF INSTITUTIONAL SALES): Patient will see a different orthopedic surgeon for 2nd opinion Assessment & Plan (11/18/2022 7:47 AM DIRECTOR OF INSTITUTIONAL SALES): Patient takes tramadol as needed. He was followed by orthopedic doctor. He is not interested in surgery at this time. LON (obstructive sleep apnea) 03/06/2021 Assessment & Plan (12/13/2024 5:44 PM DIRECTOR OF INSTITUTIONAL SALES): Patient uses CPAP machine on regular basis Assessment & Plan (07/05/2024 7:26 AM CDT): Patient uses CPAP machine on regular basis Assessment & Plan (01/16/2024 7:40 AM DIRECTOR OF INSTITUTIONAL SALES): Patient uses CPAP machine on regular basis Assessment & Plan (05/12/2023 8:38 AM CDT): Patient uses CPAP machine on regular basis Assessment & Plan (11/18/2022 7:46 AM DIRECTOR OF INSTITUTIONAL SALES): Patient uses CPAP machine on regular basis [...] 03/28/2020 Assessment & Plan (01/16/2024 8:42 AM DIRECTOR OF INSTITUTIONAL SALES): Patient is maintained on tramadol p.r.n. with [...] 06/08/2018 Assessment & Plan (12/13/2024 5:43 PM DIRECTOR OF INSTITUTIONAL SALES): Continue current medications. Discussed low-salt diet. Discussed exercise on regular basis. Will continue to monitor Assessment & Plan (07/05/2024 7:26 AM CDT): Continue current medications. Discussed low-salt diet. Discussed exercise on regular basis. Will continue to monitor Assessment & Plan (01/16/2024 7:39 AM DIRECTOR OF INSTITUTIONAL SALES): Continue current medications. Discussed low-salt diet. Discussed [...] monitor Assessment & Plan (11/18/2022 7:46 AM DIRECTOR OF INSTITUTIONAL SALES): Continue current medications. Discussed low-salt diet. Discussed [...] 08/09/2016 Assessment & Plan (01/16/2024 7:39 AM DIRECTOR OF INSTITUTIONAL SALES): Asymptomatic Assessment & Plan (05/12/2023 8:37 AM [...] 08/09/2016 Assessment & Plan (12/13/2024 5:43 PM DIRECTOR OF INSTITUTIONAL SALES): Continue low-fat diet and exercise Assessment & Plan (01/16/2024 7:39 AM DIRECTOR OF INSTITUTIONAL SALES): Continue low-fat diet and exercise Assessment & Plan (05/12/2023 8:37 AM CDT): Continue low-fat diet and exercise Assessment & Plan (11/18/2022 7:46 AM DIRECTOR OF INSTITUTIONAL SALES): Controlled on current medications. Continue low-fat diet. [...] for further evaluation ED (erectile dysfunction) 08/09/2016 Encounters Date Type Department Care Team Description 02/10/2025 Nurse Triage [facility] Medical [facility] Internal Medicine [address] [place] [address] [place] [phone] Michael Wiggins MD Acute pain of left shoulder (Primary Dx); Rib pain; Fall, initial encounter 02/01/2025 Results Follow-Up [facility] Nephrology at [address] [address] Elkin Juan MD 01/31/2025 Results Follow-Up [facility] Group Nephrology at [address] [address] Elkin Juan MD Stage 3a chronic kidney disease (HCC) (Primary Dx) 01/29/2025 Orders Only [facility] Medical [facility] Nephrology at [address] [address] Elkin Juan MD 01/27/2025 10:30 AM CDT Office Visit [facility] Group Nephrology at [address] [address] Elkin Juan MD Stage 3a chronic kidney disease (HCC) (Primary Dx); Renal cysts, acquired, bilateral; Essential hypertension; Pancreas cyst; Obstructive sleep apnea 01/06/2025 Results Follow-Up [facility] Nephrology at [address] [address] Elkin Juan MD 01/04/2025 7:24 PM DIRECTOR OF INSTITUTIONAL SALES - 01/04/2025 11:59 PM DIRECTOR OF INSTITUTIONAL SALES Hospital Encounter [facility] [place] [address] Pancreas cyst Discharge Disposition: Discharge to home or self care 12/13/2024 4:15 PM DIRECTOR OF INSTITUTIONAL SALES Office Visit [facility] Medical [facility] [address] [place] [phone] Michael Wiggins MD Dyslipidemia (Primary Dx); Hypertensive kidney disease; Morbid obesity (HCC); LON (obstructive sleep apnea); Stage 3a chronic kidney disease (HCC); BMI 36.0-36.9,adult; Encounter for immunization; Rotator cuff tear arthropathy of right shoulder; Prostate cancer screening 12/08/2024 Telephone [facility] Group Gastroenterology at [address] [place] [address] Elkin Juan MD from Last 3 Months Immunizations Immunization Administration Dates Next Due Influenza, Quadrivalent, Spl it, Preservative Free, Intramuscular 08/06/2022,08/31/2021,08/28/2020,08/30 Tdap 01/20/2023,03/14/2022 Surgical History Surgery Date Site/Laterality Comments BACK SURGERY 11/10/1994 - 11/09/1995 herniated disk CARPAL TUNNEL RELEASE 11/10/2019 - 11/09/2020 Left HAND SURGERY 10/01/2022 Right RIGHT CARPAL TUNNEL RELEASE, LEFT RING TRIGGER FINGER RELEASE, RIGHT THUMB AND SMALL TRIGGER FINGER RELEASE THUMB SURGERY 01/20/2023 Left TRIGGER FINGER RELEASE 10/16/2023 Left index Medical History Medical History Date Comments Hyperlipidemia Hypertension Anxiety Sleep apnea wears cpap night ly Obesity Laceration of thumb 01/20/2023 sutures pres ent states patient covers to shower see med list and ED notes Family History Medical History Relation Name Comments Hypertension Father Stroke Father Clotting disorder Mother Diabetes Mother Relation Name Status Comments Father Mother Alive Social History Tobacco Use Types Packs/Day Years [...] on file Legal Sex Male 3:58 AM DIRECTOR OF INSTITUTIONAL SALES Gender Identity Not on file Sexual Orientation Not on file 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 on file Not on f ile Obstetrics History Last Filed Vital Signs Vital Sign Reading Time Taken Comments Blood Pressure 126/80 01/27/2025 10:14 AM CDT Pulse 73 01/27/2025 10:14 AM CDT Temperature 36.1 C (97 F) 01/27/2025 10:14 AM CDT Respiratory Rate 16 12/13/2024 4:16 PM DIRECTOR OF INSTITUTIONAL SALES Oxygen Saturation 98% 12/13/2024 4:16 PM DIRECTOR OF INSTITUTIONAL SALES Inhaled Oxygen Concentration - - Weight 113.4 kg (250 lb) 01/27/2025 10:14 AM CDT Height 177.8 cm (5' 10 ) 01/27/2025 10:14 AM CDT Body Mass Index 35.87 01/27/2025 10:14 AM CDT Plan of Treatment Health Maintenance Due Date Last Done Comments Hepatitis B Screening 1978 Regular Well Visit/Exam 18-64 1978 Zoster Vaccine (1 of 2) 2010 Colon Cancer Screening-DNA Stool 02/27/2025 02/27/2022, 08/30/2010 Influenza Vaccine (Season Ended) 2025 08/06/2022, 08/31/2021, 08/28/2020, Additional history exists Depression Screening 12/13/2025 12/13/2024, 07/05/2024, 01/16/2024, Additional history exists Prostate Cancer Screening-PSA 01/29/2027 01/29/2025, 04/03/2024, 09/06/2023, Additional history exists DTaP/Tdap/Td Vaccine (3 - Td or Tdap) 01/20/2033 01/20/2023, 03/14/2022 Colon Cancer Screening-CT Colonography Discontinued 08/30/2010 Colon Cancer Screening-Colonoscopy Discontinued 08/30/2010 Colon Cancer Screening-Sigmoidoscopy Discontinued 08/30/2010 Hepatitis C Screening Completed 12/20/2021 Colon Cancer Screening-FIT Discontinued 02/27/2022, Pneumococcal vaccine <65 Aged Out No longer eligible based on patient's age to complete this topic Procedures Procedure Name Priority Date/Time Associated Diagnosis [...] Read Routine (OP Routine) 01/04/2025 8:25 PM DIRECTOR OF INSTITUTIONAL SALES Pancreas cyst STOOL DNA COLOGUARD Routine 02/27/2022 8:00 AM CDT Colon cancer screening HEPATITIS C ANTIBODY Routine 12/20/2021 9:03 AM DIRECTOR OF INSTITUTIONAL SALES Encounter for hepatitis C screening test for low risk patient [facility] COLONOSCOPY Routine 08/30/2010 from Last 3 Months or Most Recently Relevant to Health Maintenance Results * (ABNORMAL) Albumin Creatinine Ratio, Urine (01/31/2025 9:54 AM CDT) Urine us Elkin Juan MD LAB URINE ORDERABLES Final Resu lt Performing Organization Address [facility] de Phone Number [facility] * (ABNORMAL) Renal function panel (01/31/2025 9:54 AM CDT) Blood us Elkin Juan MD LAB BLOOD ORDERABLES Final Resu lt Performing Organization Address [facility] de Phone Number [facility] * (ABNORMAL) Urinalysis reflex to microscopic and culture Urine (01/31/2025 9:54 AM CDT) Urine us Elkin Juan MD LAB MICROBIOLOGY - [facility] Final Result Performing Organization Address [facility] de Phone Number [facility] * Microscopic Examination [...] AM CDT Performed at: 01 - [facility] [address] [id number] Accounts Receivable Accountant: Ricardo Obrien PhD, Phone: [phone] us Elkin Juan MD LAB BLOOD ORDERABLES Final Resu lt Performing Organization Address [facility]/ZIP Co de Phone Number [facility] - 01 * (ABNORMAL) Urinalysis reflex to microscopic and culture (01/29/2025 8:43 AM CDT) Pathologist [facility] Specific [place] 1.025 1.005 - 1.030 [facility] - 01 [...] - 01/30/2025 8:09 AM CDT Performed at: [address] [place] [id number] Accounts Receivable Accountant: Ricardo Obrien PhD, Phone: [phone] us Elkin Juan MD LAB MICROBIOLOGY - GENERAL JUANY MONTANEZ Final Result Performing Organization Address [facility]/ZIP Co de Phone Number [facility] - * (ABNORMAL) Albumin Creatinine Ratio, Urine (01/29/2025 8:43 AM CDT) Pathologist [facility] Creatinine ur 213.1 Not Estab. mg/dL [facility] - 01 Microalbumin, ur 566.0 Not Estab. ug/mL [facility] - 01 Comment: Results confirmed on dilution. Microalbumin/cr eat ratio 266(H) 0 - 29 mg/g creat [facility] - 01 Comment: Normal: 0 - 29 Moderately increased: 30 - 300 Severely increased: >300 01/29/2025 8:43 AM CDT 01/29/2025 Narrative [facility] - 01/30/2025 8:09 AM CDT Performed at: [address] [id number] Accounts Receivable Accountant: Ricardo Obrien PhD, Phone: [phone] us Elkin Juan MD LAB URINE ORDERABLES Final Resu lt [facility] - 01 * (ABNORMAL) Renal function panel (01/29/2025 8:43 AM CDT) Pathologist [facility] Glucose 94 70 - 99 mg/dL [facility] [...] - 01/30/2025 7:08 AM CDT Performed at: [address] [id number] Accounts Receivable Accountant: Ricardo Obrien PhD, Phone: [phone] us Elkin Juan MD LAB BLOOD ORDERABLES Final Resu lt [facility] - * PSA screen (01/29/2025 8:39 AM CDT) [facility] PSA 1.1 0.0 - 4.0 ng/mL [facility] - 01 Comment: Sergio ECLIA methodology. According to the [place] [employer] Association, Serum PSA should decrease and [...] - 01/30/2025 9:09 AM CDT Performed at: [address] [place] [id number] Accounts Receivable Accountant: Ricardo Obrien PhD, Phone: [phone] Michael Wiggins MD LAB BLOOD ORDERABLES Final Result [facility] - * Hepatic function panel (01/29/2025 8:39 AM CDT) [facility] Protein, sr 7.2 6.0 - 8.5 g/dL [...] - 01/30/2025 9:09 AM CDT Performed at: - [facility] [id number] Accounts Receivable Accountant: Ricardo Obrien PhD, Phone: [phone] Michael Wiggins MD LAB BLOOD ORDERABLES Final Result Performing Organization Address [facility] de Phone Number [facility] - 01 * (ABNORMAL) Lipid panel (01/29/2025 8:39 AM CDT) [facility] Cholesterol 202(H) 100 - 199 mg/dL [facility] - 01 Triglycerides 118 0 - 149 mg/dL [facility] - 01 HDL Cholesterol 42 >39 mg/dL [facility] - 01 VLDL 21 5 - 40 mg/dL [facility] - 01 LDL, calculated 139(H) 0 - 99 mg/dL [facility] - 01 Blood 01/29/2025 8:39 AM CDT 01/29/2025 Narrative [facility] - 01/30/2025 9:09 AM CDT Performed at: - [facility] [id number] Accounts Receivable Accountant: Ricardo Obrien PhD, Phone: [phone] Michael Wiggins MD LAB BLOOD ORDERABLES Final Result Performing Organization Address [facility] de Phone Number [facility] - 01 * MRI Abdomen W WO Contrast (01/04/2025 8:25 PM DIRECTOR OF INSTITUTIONAL SALES) Anatomical Region Laterality Modality Body N/A Magnetic Resonan ce 01/06/2025 10:4 3 AM DIRECTOR OF INSTITUTIONAL SALES Narrative 01/06/2025 10:55 AM DIRECTOR OF INSTITUTIONAL SALES EXAM DESCRIPTION: MRI ABDOMEN W WO CONTRAST [...] Debbie Leal M.D. FT T: Report ID: [id number] Reading Location: [place] [address] Procedure Note Debbie Ignacio MD - 01/06/2025 [...] Debbie Leal M.D. FT T: Report ID: [id number] Reading Location: [id number] Elkin Juan MD [facility] MRI PROCEDURES Final Result * Stool DNA - Cologuard (02/27/2022 8:00 AM CDT) Stool DNA - Cologuard Negative Negative [facility] (CLIA #:[id number]) Comment: NEGATIVE TEST RESULT. A negative Cologuard [...] Reid. et al, N Engl J Med 2014;370(14):5567-8028) The normal value (reference range) for this assay is negative. COLOGUARD RE-SCREENING RECOMMENDATION: Periodic colorectal cancer screening is an important part of preventive healthcare for asymptomatic individuals at average risk for colorectal cancer. Following a negative Cologuard result, the [place] Cancer Society and U.S. Multi-Society Task Force screening guidelines recommend a Cologuard re-screening interval of 3 years. References: [place] Cancer Society Guideline for Colorectal Cancer Screening: https://www.cancer.org/cancer/byltg-phuiyo-nhamqq/biuidgigr-ppevclupd-jzhiexc/ac s-rec ommendations.html.; Mike NIÑO, Steph YORK, Kenny GunnK, Colorectal Cancer Screening: Recommendations for Physicians and Patients from the U.S. Multi-Society Task Force on Colorectal Cancer Screening , Am J Gastroenterology 2017; 112:5360-9963. TEST DESCRIPTION: Composite algorithmic analysis of stool [...] screened with both Cologuard and colonoscopy. (Mike Philip et al, N Engl J Med 2014;370(14):2583-3727.) Cologuard may produce a false negative or false positive result (no colorectal cancer or precancerous polyp present at colonoscopy follow up). A negative Cologuard test result does not guarantee the absence of CRC or advanced adenoma (pre-cancer). The current Cologuard screening interval is every 3 years. ([place] Cancer Society and U.S. Multi-Society Task Force). Cologuard performance data in a 10,000 patient pivotal study using colonoscopy as the reference method can be accessed at the following location: www.Trendrating/results. Additional description of the Cologuard test process, warnings and precautions can be found at www.[facility].com. Stool 02/27/2022 8:00 AM CDT 03/01/2022 11:32 AM CDT Michael Wiggins MD LAB BODY FLUIDS AND STOOLS ORDERABLES Final Result [facility] (CLIA #:[id number]) [place] [address] * Hepatitis C antibody (12/20/2021 9:03 AM DIRECTOR OF INSTITUTIONAL SALES) Hep C Ab 0.1 0.0 - 0.9 s/co ratio [facility] - 01 Comment: Negative: < 0.8 Indeterminate: 0.8 - 0.9 Positive: > 0.9 The CDC recommends that a positive HCV antibody result be followed up with a HCV Nucleic Acid Amplification test (059889). Blood specimen (specimen) 12/20/2021 9:03 AM DIRECTOR OF INSTITUTIONAL SALES 12/20/2021 Narrative [facility] - 12/21/2021 9:11 AM DIRECTOR OF INSTITUTIONAL SALES Performed at: 01 - [facility] [address] [id number] Accounts Receivable Accountant: Ricardo Obrien PhD, Phone: [phone] Michael Wiggins MD LAB MICROBIOLOGY - GENERAL ORDERABLES Final Result [facility] - 01 * COLONOSCOPY (08/30/2010) HM Colonoscopy Unknown us Historical Provider HEALTH MAINTENANCE Final Result from Last 3 Months or Most Recently Relevant to Health Maintenance Insurance [facility] [employer] [employer] H[employer]/PPO Address: [address] [address] Care Teams Wire Preparation Worker Relationship Specialty Start Date End Date Michael Wiggins MD [address] [facility] [place] [address] PCP - General Internal Medicine 02/18/19
--- OUTSIDE RECORDS SUMMARY | 2025-02-10 14:49 | XMS_ITS | Encounter Summary ---
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
--- OUTSIDE RECORDS SUMMARY | 2025-02-10 14:49 | XMS_ITS | Encounter Summary ---
Author Organization [facility] Healthcare Address [address] [place] [address] Care Team Providers Care Solar Resource Assessor Name Role Phone Michael Wiggins MD Primary Care Provider [phone] Encounter Details Date Type Department Care Team (Late st Contact Info) Description 01/31/2025 Results Follow-Up [facility] Medical Group Nephrology at [address] [place] [address] Elkin Juan MD [address] [place] [address] [address] [place] [address] Stage 3a chronic kidney disease (HCC) (Primary Dx) Social History Tobacco Use Types Packs/Day Years [...] on file Legal Sex Male 3:58 AM BRUSHER HAND Gender Identity Not on file Sexual Orientation Not on file 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 Bicarbonate is low however and would place on sodium bicarbonate tablets at a higher dose than previously by increasing to 1300 mg twice daily. Recheck renal function panel in 1 month. Thank you. * Telephone Encounter - Vivienne Ko MA - 02/03/2025 1:47 PM CDT ----- Message from Elkin Juan MD sent at 01/31/2025 5:20 PM CDT ----- Stable albuminuria and kidney function. Bicarbonate is low however and would place on sodium bicarbonate tablets at a higher dose than previously by increasing to 1300 mg twice daily. Recheck renal function panel in 1 month. Thank you. * Telephone Encounter - Vivienne Ko MA - 02/03/2025 1:47 PM CDT ----- Message from Elkin Juan MD sent at 01/31/2025 5:20 PM CDT ----- Stable albuminuria and kidney function. Bicarbonate is low however and would place on sodium bicarbonate tablets at a higher dose than previously by increasing to 1300 mg twice daily. Recheck renal function panel in 1 month. Thank you. * Telephone Encounter - Vivienne Ko MA - 02/03/2025 1:46 PM CDT ----- Message from Elkin Juan MD sent at 01/31/2025 5:20 PM CDT ----- Stable albuminuria and kidney function. Bicarbonate is low however and would place on sodium bicarbonate tablets at a higher dose than previously by increasing to 1300 mg twice daily. Recheck renal function panel in 1 month. Thank you. documented in this encounter Plan of Treatment Scheduled Orders Name Type Priority Associated Diagnoses Orde r Schedule Renal function panel Lab Routine Stage 3a chronic kidney disease (HCC) Expected: 02/28/2025, Expires: 02/03/2026 documented as of this encounter Visit Diagnoses Diagnosis Stage 3a chronic kidney disease (HCC)- Primary documented in this encounter Discontinued Medications Medication Sig Discontinue Reason Start Date End Da te sodium bicarbonate 650 mg tablet Take 1 tablet (650 mg total) by mouth 3 (three) times a day Reorder 01/27/2025 02/03/2025 documented as of this encounter Care Teams Solar Resource Assessor Relationship Specialty Start Date End Date Michael Wiggins MD [facility] [address] [place] [address] [place] [id number] PCP - General Internal Medicine 02/18/19 documented as of this encounter
== END 2025-02-10 14:13 | disposition home or self-care (01) ==
PROVIDERS: PCP Internal Medicine; Visit Provider Internal Medicine
DX: M19.012 Primary osteoarthritis, left shoulder (principal); J98.11 Atelectasis; W19.XXXA Unspecified fall, initial encounter
CPT/HCPCS: 71046; 73030

== ENCOUNTER 2025-03-05 10:14 | Outpatient (CLI) | payer OTHER, SELFPAY ==
--- NOTE | ~2025-03-05 | MR_ITS ---
MRI of the left shoulder Technique: Axial proton-density fat-sat images, coronal proton density fat-sat and T2 fat-sat images, and sagittal T1-weighted and T2 fat-sat images were acquired. Clinical History: Rotator cuff tear Findings: There is advanced AC joint degenerative change, probably degenerative change of the distal clavicle. There are small amount of fluid in the joint space. Coracoclavicular, coracoacromial, and c oracohumeral ligaments are probably intact. There are full-thickness tears involving the majority of the supraspinatus tendon, and the entire inf raspinatus tendon. A few of the anteriormost fibers of the supraspinatus tendon appear to remain inta ct. Fluid-filled gap measures approximately up to 4.3 x 3.8 cm in extent. Subscapularis tendon is int act with mild tendinosis. Tendon of long head of the biceps is intact, with intra-articular tendinosi s. There is superior labral tear extending to the posterior superior and posterior portions. Inferior glenohumeral ligament is intact. There is minimal degenerative change of the glenohumeral [place] int. There is fluid passing through the rotator cuff defect into the subacromial/subdeltoid bursa. Th ere is edematous change of the supraspinatus and infraspinatus muscle bellies, without atrophy. Impression: Complete, full-thickness tears involving the entire infraspinatus tendon and the majority of the supr aspinatus tendon, sparing the anteriormost fibers. Please see details above. Edematous change of the infraspinatus and supraspinatus muscle bellies, which could reflect muscle st rain/contusions. Tendinosis of the subscapularis tendon and intra-articular biceps tendon. Superior labral tear extending to the posterior superior and posterior portions. Advanced AC joint degenerative change. Reviewed, dictated and finalized at location M. Impression: Complete, full-thickness tears involving the entire infraspinatus tendon and th e majority of the supraspinatus tendon, sparing the anteriormost fibers. Please see details above. Edematous change of the infraspinatus and supraspinatus muscle bellies, which c ould reflect muscle strain/contusions. Tendinosis of the subscapularis tendon and intra-articular biceps tendon. Superior labral tear extending to the posterior superior and posterior portions . Advanced AC joint degenerative change.
== END 2025-03-05 10:15 | disposition home or self-care (01) ==
PROVIDERS: PCP Internal Medicine; Visit Provider Orthopaedic Surgery
DX: M75.102 Unspecified rotator cuff tear or rupture of left shoulder, not specified as traumatic (principal); M19.012 Primary osteoarthritis, left shoulder
CPT/HCPCS: 73221

== ENCOUNTER 2025-03-26 11:36 | Outpatient (CLI) | payer OTHER, SELFPAY ==
--- OUTSIDE RECORDS SUMMARY | 2025-03-26 11:39 | XMS_ITS | Encounter Summary ---
Author Organization [facility] Healthcare Address [address] [place] [address] Care Team Providers Care Travel Agent Name Role Phone Michael Wiggins MD Primary Care Provider [phone] Encounter Details Date Type Department Care Team (Late st Contact Info) Description 02/01/2025 Results Follow-Up [facility] Nephrology at [address] [place] [address] Elkin Juan MD [address] [place] [address] [address] [place] [address] Social History Tobacco Use Types Packs/Day Years [...] on file Legal Sex Male 3:58 AM [employer] Gender Identity Not on file Sexual Orientation Not on file 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
--- OUTSIDE RECORDS SUMMARY | 2025-03-26 11:39 | XMS_ITS | Clinical Summary ---
Author Organization [facility] Office Center Address [address] [place] [address] Care Team Providers Care Lead Software Architect Name Role Phone Michael Wiggins MD Primary Care Provider [phone] Allergies No known active allergies Medications doxazosin (CARDURA) 4 mg tablet TAKE 1 TABLET DAILY 90 tablet 3 04/06/2024 Active amLODIPine (NORVASC) 10 mg tablet TAKE 1 TABLET DAILY 90 tablet 3 04/06/2024 Active olmesartan (BENICAR) 40 mg tablet Take 1 tablet (40 mg total) by mouth daily 90 tablet 3 05/05/2024 05/05/20 25 Active traMADol-acetami nophen (ULTRACET) 37.5-325 mg per tablet Take 1 tablet by mouth every 6 (six) hours as needed for pain for pain 270 tablet 1 12/13/2024 Active cholecalciferol (VITAMIN D-3) 2000 unit capsule Take 1 capsule (2,000 Units total) by mouth daily 90 capsule 3 01/27/2025 01/28/20 26 Active sodium bicarbonate 650 mg tabletIndication s:Stage 3a chronic kidney disease (HCC) Take 2 tablets (1,300 mg total) by mouth 2 (two) times a day 02/03/2025 02/04/20 26 Active Active Problems Problem Noted Date Diagnosed Date [...] 05/12/2023 Assessment & Plan (12/13/2024 5:44 PM ROPE LAYING MACHINE OPERATOR): Continue Farxiga. Avoid NSAIDs. Followed by the community health coordinator Assessment & Plan (07/05/2024 7:26 AM CDT): Continue Farxiga. Avoid NSAIDs. Followed by the community health coordinator Assessment & Plan (01/16/2024 7:40 AM ROPE LAYING MACHINE OPERATOR): Continue Farxiga. Avoid NSAIDs. Followed by the community health coordinator Assessment & Plan (09/12/2023 7:58 AM CDT): Continue Farxiga. Avoid NSAIDs. Followed by the community health coordinator Assessment & Plan (05/12/2023 8:38 AM CDT): Patient with persistent chronic kidney disease. He increase fluid intake. He does not use NSAIDs. Will start him on Farxiga 10 mg daily. Will make him a referral to see a community health coordinator for further evaluation. Open wound of finger with tendon injury 01/24/20 23 Overview (01/23/2023): Added automatically from request for surgery [id number] Trigger finger of right thumb 09/05/2022 Overview (09/05/2022): Added automatically from request for surgery [id number] Carpal tunnel syndrome, right 09/04/2022 Right wrist pain 09/04/2022 Morbid obesity 03/14/2022 Assessment & Plan (12/13/2024 5:44 PM ROPE LAYING MACHINE OPERATOR): BMI Follow-up includes: nutrition counseling. The patient [...] changes. Assessment & Plan (01/16/2024 7:40 AM ROPE LAYING MACHINE OPERATOR): BMI Follow-up includes: nutrition counseling. The patient was advised to exercise 5 times a week for 30 minutes each time. We discussed low calorie diet. Discussed lifestyle changes. Assessment & Plan (11/18/2022 8:59 AM ROPE LAYING MACHINE OPERATOR): BMI Follow-up includes: nutrition counseling. The patient [...] 05/31/2021 Assessment & Plan (12/13/2024 5:44 PM ROPE LAYING MACHINE OPERATOR): Patient will see a different orthopedic surgeon for 2nd opinion Assessment & Plan (11/18/2022 7:47 AM ROPE LAYING MACHINE OPERATOR): Patient takes tramadol as needed. He was followed by orthopedic doctor. He is not interested in surgery at this time. LON (obstructive sleep apnea) 03/06/2021 Assessment & Plan (12/13/2024 5:44 PM ROPE LAYING MACHINE OPERATOR): Patient uses CPAP machine on regular basis Assessment & Plan (07/05/2024 7:26 AM CDT): Patient uses CPAP machine on regular basis Assessment & Plan (01/16/2024 7:40 AM ROPE LAYING MACHINE OPERATOR): Patient uses CPAP machine on regular basis Assessment & Plan (05/12/2023 8:38 AM CDT): Patient uses CPAP machine on regular basis Assessment & Plan (11/18/2022 7:46 AM ROPE LAYING MACHINE OPERATOR): Patient uses CPAP machine on regular basis [...] 03/28/2020 Assessment & Plan (01/16/2024 8:42 AM ROPE LAYING MACHINE OPERATOR): Patient is maintained on tramadol p.r.n. with [...] 06/08/2018 Assessment & Plan (12/13/2024 5:43 PM ROPE LAYING MACHINE OPERATOR): Continue current medications. Discussed low-salt diet. Discussed exercise on regular basis. Will continue to monitor Assessment & Plan (07/05/2024 7:26 AM CDT): Continue current medications. Discussed low-salt diet. Discussed exercise on regular basis. Will continue to monitor Assessment & Plan (01/16/2024 7:39 AM ROPE LAYING MACHINE OPERATOR): Continue current medications. Discussed low-salt diet. Discussed [...] monitor Assessment & Plan (11/18/2022 7:46 AM ROPE LAYING MACHINE OPERATOR): Continue current medications. Discussed low-salt diet. Discussed [...] 08/09/2016 Assessment & Plan (01/16/2024 7:39 AM ROPE LAYING MACHINE OPERATOR): Asymptomatic Assessment & Plan (05/12/2023 8:37 AM [...] 08/09/2016 Assessment & Plan (12/13/2024 5:43 PM ROPE LAYING MACHINE OPERATOR): Continue low-fat diet and exercise Assessment & Plan (01/16/2024 7:39 AM ROPE LAYING MACHINE OPERATOR): Continue low-fat diet and exercise Assessment & Plan (05/12/2023 8:37 AM CDT): Continue low-fat diet and exercise Assessment & Plan (11/18/2022 7:46 AM ROPE LAYING MACHINE OPERATOR): Controlled on current medications. Continue low-fat diet. [...] Encounters Date Type Department Care Team Description 03/18/2025 Telephone [facility] G[facility]ology at [place] [address] [place] [address] Elkin Juan MD 03/05/2025 Orders Only [facility] Information [facility] [address] [place] [address] Scanning, Provider 02/14/2025 Telephone [facility] Internal Medicine [address] [place] [address] Michael Wiggins MD 02/10/2025 Orders Only [facility] Information Management [address] [place] [address] Michael Wiggins MD 02/10/2025 Nurse Triage [facility] Internal Medicine [address] [facility] [address] [place] [address] Michael Wiggins MD Acute pain of left shoulder (Primary Dx); Rib pain; Fall, initial encounter 02/01/2025 Results Follow-Up [facility] at [address] [address] Elkin Juan MD 01/31/2025 Results Follow-Up [facility] Nephrology at [address] [address] Elkin Juan MD Stage 3a chronic kidney disease (HCC) (Primary Dx) 01/29/2025 Orders Only [facility] Medical [facility] Nephrology at [address] [address] Elkin Juan MD 01/27/2025 10:30 AM CDT Office Visit [facility] Nephrology at [address] [address] Elkin Juan MD Stage 3a chronic kidney disease (HCC) (Primary Dx); Renal cysts, acquired, bilateral; Essential hypertension; Pancreas cyst; Obstructive sleep apnea 01/06/2025 Results Follow-Up [facility] Nephrology at [address] [address] Elkin Juan MD 01/04/2025 7:24 PM ROPE LAYING MACHINE OPERATOR - 01/04/2025 11:59 PM ROPE LAYING MACHINE OPERATOR Hospital Encounter [facility] MRI [address] [place] [address] Pancreas cyst Discharge Disposition: Discharge to home or self care from Last 3 Months Immunizations Immunization Administration [...] on file Legal Sex Male 3:58 AM ROPE LAYING MACHINE OPERATOR Gender Identity Not on file [...] CDT Respiratory Rate 16 12/13/2024 4:16 PM ROPE LAYING MACHINE OPERATOR Oxygen Saturation 98% 12/13/2024 4:16 PM ROPE LAYING MACHINE OPERATOR Inhaled Oxygen Concentration - - Weight 113.4 [...] Procedure Name Priority Date/Time Associated Diagnosis Comments SCAN - RADIOLOGY/IMAGING 03/05/2025 SCAN - RADIOLOGY/IMAGING 02/10/2025 ALBUMIN CREATININE RATIO, URINE Routine 01/31/2025 9:54 [...] Read Routine (OP Routine) 01/04/2025 8:25 PM ROPE LAYING MACHINE OPERATOR Pancreas cyst STOOL DNA COLOGUARD Routine 02/27/2022 8:00 AM CDT Colon cancer screening HEPATITIS C ANTIBODY Routine 12/20/2021 9:03 AM ROPE LAYING MACHINE OPERATOR Encounter for hepatitis C screening test for low risk patient HM COLONOSCOPY Routine 08/30/2010 from Last 3 Months or Most Recently Relevant to Health Maintenance Results * SCAN - RADIOLOGY/IMAGING (03/05/2025) Anatomical Region Laterality Modality Other us Provider Scanning Final Result * SCAN - RADIOLOGY/IMAGING (02/10/2025) Anatomical Region Laterality Modality Other us Michael Wiggins MD Final Resul t * (ABNORMAL) Albumin Creatinine Ratio, Urine (01/31/2025 9:54 AM CDT) Urine Elkin Juan MD LAB URINE ORDERABLES Final Resu lt Performing Organization Address [facility]/ZIP Co de Phone Number [facility] * (ABNORMAL) Renal function panel (01/31/2025 9:54 AM CDT) Blood us Elkin Juan MD LAB BLOOD ORDERABLES Final Resu lt Performing Organization Address [facility] Co de Phone Number [facility] * (ABNORMAL) Urinalysis reflex to microscopic and culture Urine (01/31/2025 9:54 AM CDT) Urine us Elkin Juan MD LAB MICROBIOLOGY - [facility] Final Result Performing Organization Address [facility] de Phone Number [facility] * Microscopic [...] - 01/30/2025 8:09 AM CDT Performed at: [facility] [id number] Orchestra Director: Ricardo Obrien PhD, Phone: [phone] Elkin Juan MD LAB BLOOD ORDERABLES Final Resu lt [facility] - 01 * (ABNORMAL) Urinalysis reflex to microscopic and culture (01/29/2025 8:43 AM CDT) Specific [place] 1.025 1.005 - 1.030 [facility] - 01 [...] - 01/30/2025 8:09 AM CDT Performed at: [address] [place] [id number] Orchestra Director: Ricardo Obrien PhD, Phone: [phone] us Elkin Juan MD LAB MICROBIOLOGY - GENERAL [facility] Final Result [facility] - 01 * (ABNORMAL) Albumin Creatinine Ratio, Urine (01/29/2025 [...] - 01/30/2025 8:09 AM CDT Performed at: [address] [id number] Orchestra Director: Ricardo Obrien PhD, Phone: [phone] Elkin Juan MD LAB URINE ORDERABLES Final [facility] lt [facility] - * (ABNORMAL) Renal function panel (01/29/2025 8:43 AM CDT) [facility] Glucose 94 70 - 99 mg/dL [...] - 01/30/2025 7:08 AM CDT Performed at: [address] [id number] Orchestra Director: Ricardo Obrien PhD, Phone: [phone] Elkin Juan MD LAB BLOOD ORDERABLES Final Resu lt [facility] * PSA screen (01/29/2025 8:39 AM CDT) Pathologist [facility] PSA 1.1 0.0 - 4.0 ng/mL [facility] - 01 Comment: Sergio ECLIA methodology. According to the [place] [employer], Serum PSA should decrease and [...] - 01/30/2025 9:09 AM CDT Performed at: [place] [id number] Orchestra Director: Ricardo Obrien PhD, Phone: [phone] Michael Wiggins MD LAB BLOOD ORDERABLES Final Result [facility] * Hepatic function panel (01/29/2025 8:39 AM CDT) Pathologist [facility] Protein, sr 7.2 6.0 - 8.5 g/dL [...] - 01/30/2025 9:09 AM CDT Performed at: 01 - [facility] [id number] Orchestra Director: Ricardo Obrien PhD, Phone: [phone] Michael Wiggins MD LAB BLOOD ORDERABLES Final Result [facility] - 01 * (ABNORMAL) Lipid panel (01/29/2025 8:39 AM CDT) Cholesterol 202(H) 100 - 199 mg/dL [facility] - 01 [id number]|2025-03-26 11:39:00|2025-03-26 11:39:00|XMS_ITS|BKG DAEMON|External Medical Summaries|[id number]|" Referral Summary Created on: March 26, 2025 Jayy Nevarez : 1960 Sex: Male Author Organization [facility] Address [address] [place] [address] Care Team Providers Care Lead Software Architect Name Role Phone Michael Wiggins MD Primary Care Provider [phone] Encounters Date Type Department Care Team Description 03/18/2025 Telephone [facility] [place] [address] [place] [address] Elkin Juan MD 03/05/2025 Orders Only [facility] Information Management [address] [place] [address] Scanning, Provider 02/14/2025 Telephone [facility] Internal Medicine [address] [place] [address] [place] [phone] Michael Wiggins MD 02/10/2025 Orders Only [facility] Health Information Management [address] [place] [address] Michael Wiggins MD 02/10/2025 Nurse Triage [facility] Internal Medicine [address] [place] [address] [place] [phone] Michael Wiggins MD Acute pain of left shoulder (Primary Dx); Rib pain; Fall, initial encounter 02/01/2025 Results Follow-Up [facility] at [address] [address] Elkin Juan MD 01/31/2025 Results Follow-Up [facility] at [address] [address] Elkin Juan MD Stage 3a chronic kidney disease (HCC) (Primary Dx) 01/29/2025 Orders Only [facility] at [address] [address] Elkin Juan MD 01/27/2025 10:30 AM CDT Office Visit [facility] Nephrology at [address] [address] Elkin Juan MD Stage 3a chronic kidney disease (HCC) (Primary Dx); Renal cysts, acquired, bilateral; Essential hypertension; Pancreas cyst; Obstructive sleep apnea 01/06/2025 Results Follow-Up [facility] at [address] [address] Elkin Juan MD 01/04/2025 7:24 PM ROPE LAYING MACHINE OPERATOR - 01/04/2025 11:59 PM ROPE LAYING MACHINE OPERATOR Hospital Encounter [facility] MRI [facility] [place] [address] Pancreas cyst Discharge Disposition: Discharge to home or self care from Last 3 Months Allergies No known active allergies Medications doxazosin (CARDURA) 4 mg tablet TAKE 1 TABLET DAILY 90 tablet 3 04/06/2024 Active amLODIPine (NORVASC) 10 mg tablet TAKE 1 TABLET DAILY 90 tablet 3 04/06/2024 Active olmesartan (BENICAR) 40 mg tablet Take 1 tablet (40 mg total) by mouth daily 90 tablet 3 05/05/2024 05/05/20 25 Active traMADol-acetami nophen (ULTRACET) 37.5-325 mg per tablet Take 1 tablet by mouth every 6 (six) hours as needed for pain for pain 270 tablet 1 12/13/2024 Active cholecalciferol (VITAMIN D-3) 2000 unit capsule Take 1 capsule (2,000 Units total) by mouth daily 90 capsule 3 01/27/2025 01/28/20 26 Active sodium bicarbonate 650 mg tabletIndication s:Stage 3a chronic kidney disease (HCC) Take 2 tablets (1,300 mg total) by mouth 2 (two) times a day 02/03/2025 02/04/20 26 Active Active Problems Problem Noted Date Diagnosed Date [...] 05/12/2023 Assessment & Plan (12/13/2024 5:44 PM ROPE LAYING MACHINE OPERATOR): Continue Farxiga. Avoid NSAIDs. Followed by the community health coordinator Assessment & Plan (07/05/2024 7:26 AM CDT): Continue Farxiga. Avoid NSAIDs. Followed by the community health coordinator Assessment & Plan (01/16/2024 7:40 AM ROPE LAYING MACHINE OPERATOR): Continue Farxiga. Avoid NSAIDs. Followed by the community health coordinator Assessment & Plan (09/12/2023 7:58 AM CDT): Continue Farxiga. Avoid NSAIDs. Followed by the community health coordinator Assessment & Plan (05/12/2023 8:38 AM CDT): Patient with persistent chronic kidney disease. He increase fluid intake. He does not use NSAIDs. Will start him on Farxiga 10 mg daily. Will make him a referral to see a community health coordinator for further evaluation. Open wound of finger with tendon injury 01/24/20 Overview (01/23/2023): Added automatically from request for surgery [id number] Trigger finger of right thumb 09/05/2022 Overview (09/05/2022): Added automatically from request for surgery [id number] Carpal tunnel syndrome, right 09/04/2022 Right wrist pain 09/04/2022 Morbid obesity 03/14/2022 Assessment & Plan (12/13/2024 5:44 PM ROPE LAYING MACHINE OPERATOR): BMI Follow-up includes: nutrition counseling. The patient [...] changes. Assessment & Plan (01/16/2024 7:40 AM ROPE LAYING MACHINE OPERATOR): BMI Follow-up includes: nutrition counseling. The patient was advised to exercise 5 times a week for 30 minutes each time. We discussed low calorie diet. Discussed lifestyle changes. Assessment & Plan (11/18/2022 8:59 AM ROPE LAYING MACHINE OPERATOR): BMI Follow-up includes: nutrition counseling. The patient [...] 05/31/2021 Assessment & Plan (12/13/2024 5:44 PM ROPE LAYING MACHINE OPERATOR): Patient will see a different orthopedic surgeon for 2nd opinion Assessment & Plan (11/18/2022 7:47 AM ROPE LAYING MACHINE OPERATOR): Patient takes tramadol as needed. He was followed by orthopedic doctor. He is not interested in surgery at this time. LON (obstructive sleep apnea) 03/06/2021 Assessment & Plan (12/13/2024 5:44 PM ROPE LAYING MACHINE OPERATOR): Patient uses CPAP machine on regular basis Assessment & Plan (07/05/2024 7:26 AM CDT): Patient uses CPAP machine on regular basis Assessment & Plan (01/16/2024 7:40 AM ROPE LAYING MACHINE OPERATOR): Patient uses CPAP machine on regular basis Assessment & Plan (05/12/2023 8:38 AM CDT): Patient uses CPAP machine on regular basis Assessment & Plan (11/18/2022 7:46 AM ROPE LAYING MACHINE OPERATOR): Patient uses CPAP machine on regular basis [...] 03/28/2020 Assessment & Plan (01/16/2024 8:42 AM ROPE LAYING MACHINE OPERATOR): Patient is maintained on tramadol p.r.n. with [...] 06/08/2018 Assessment & Plan (12/13/2024 5:43 PM ROPE LAYING MACHINE OPERATOR): Continue current medications. Discussed low-salt diet. Discussed exercise on regular basis. Will continue to monitor Assessment & Plan (07/05/2024 7:26 AM CDT): Continue current medications. Discussed low-salt diet. Discussed exercise on regular basis. Will continue to monitor Assessment & Plan (01/16/2024 7:39 AM ROPE LAYING MACHINE OPERATOR): Continue current medications. Discussed low-salt diet. Discussed [...] monitor Assessment & Plan (11/18/2022 7:46 AM ROPE LAYING MACHINE OPERATOR): Continue current medications. Discussed low-salt diet. Discussed [...] 08/09/2016 Assessment & Plan (01/16/2024 7:39 AM ROPE LAYING MACHINE OPERATOR): Asymptomatic Assessment & Plan (05/12/2023 8:37 AM [...] 08/09/2016 Assessment & Plan (12/13/2024 5:43 PM ROPE LAYING MACHINE OPERATOR): Continue low-fat diet and exercise Assessment & Plan (01/16/2024 7:39 AM ROPE LAYING MACHINE OPERATOR): Continue low-fat diet and exercise Assessment & Plan (05/12/2023 8:37 AM CDT): Continue low-fat diet and exercise Assessment & Plan (11/18/2022 7:46 AM ROPE LAYING MACHINE OPERATOR): Controlled on current medications. Continue low-fat diet. [...] on file Legal Sex Male 3:58 AM ROPE LAYING MACHINE OPERATOR Gender Identity Not on file [...] CDT Respiratory Rate 16 12/13/2024 4:16 PM ROPE LAYING MACHINE OPERATOR Oxygen Saturation 98% 12/13/2024 4:16 PM ROPE LAYING MACHINE OPERATOR Inhaled Oxygen Concentration - - Weight 113.4 kg (250 lb) 01/27/2025 10:14 AM CDT Height 177.8 cm (5' 10 ) 01/27/2025 10:14 AM CDT Body Mass Index 35.87 01/27/2025 10:14 AM CDT Plan of Treatment Not on file Procedures Procedure Name Priority Date/Time Associated Diagnosis Comments SCAN - RADIOLOGY/IMAGING 03/05/2025 SCAN - RADIOLOGY/IMAGING 02/10/2025 ALBUMIN CREATININE RATIO, URINE Routine 01/31/2025 9:54 [...] Read Routine (OP Routine) 01/04/2025 8:25 PM ROPE LAYING MACHINE OPERATOR Pancreas cyst STOOL DNA COLOGUARD Routine 02/27/2022 8:00 AM CDT Colon cancer screening HEPATITIS C ANTIBODY Routine 12/20/2021 9:03 AM ROPE LAYING MACHINE OPERATOR Encounter for hepatitis C screening test for low risk patient HM COLONOSCOPY Routine 08/30/2010 from Last 3 Months or Most Recently Relevant to Health Maintenance Results * SCAN - RADIOLOGY/IMAGING (03/05/2025) Anatomical Region Laterality Modality Other Provider Scanning Final Result * SCAN - RADIOLOGY/IMAGING (02/10/2025) Anatomical Region Laterality Modality Other Michael Wiggins MD Final Resul t * (ABNORMAL) Albumin Creatinine Ratio, Urine (01/31/2025 9:54 AM CDT) Urine Elkin Juan MD LAB URINE ORDERABLES Final Resu lt [facility] * (ABNORMAL) Renal function panel (01/31/2025 9:54 AM CDT) Blood Elkin Juan MD LAB BLOOD ORDERABLES Final Resu lt [facility] * (ABNORMAL) Urinalysis reflex to microscopic and culture Urine (01/31/2025 9:54 AM CDT) Urine Elkin Juan MD LAB MICROBIOLOGY - GENERAL YORBA LINDACindy [facility] Final Result Performing Organization Address [facility] Co de Phone Number [facility] [...] - 01/30/2025 8:09 AM CDT Performed at: [address] [place] [id number] Orchestra Director: Ricardo Obrien PhD, Phone: [phone] Elkin Juan MD LAB BLOOD ORDERABLES Final Resu lt Performing Organization Address [facility] Co de Phone Number [facility] - 01 * (ABNORMAL) Urinalysis reflex to microscopic and culture (01/29/2025 8:43 AM CDT) Specific [place] 1.025 1.005 - 1.030 [facility] - 01 [...] - 01/30/2025 8:09 AM CDT Performed at: [address] [id number] Orchestra Director: Ricardo Obrien PhD, Phone: [phone] us Elkin Juan MD [facility] Final Result Performing Organization Address [facility] Co de Phone Number [facility] * (ABNORMAL) Albumin Creatinine Ratio, Urine (01/29/2025 [...] - 01/30/2025 8:09 AM CDT Performed at: [address] [id number] Orchestra Director: Ricardo Obrien PhD, Phone: [phone] us Elkin Juan MD LAB URINE ORDERABLES Final Resu lt Performing Organization Address [facility] Co de Phone Number [facility] * (ABNORMAL) Renal function panel (01/29/2025 8:43 AM CDT) Glucose 94 70 - 99 mg/dL [facility] [...] - 01/30/2025 7:08 AM CDT Performed at: [place] [id number] Orchestra Director: Ricardo Obrien PhD, Phone: [phone] us Elkin Juan MD LAB BLOOD ORDERABLES Final Resu lt [facility] - * PSA screen (01/29/2025 8:39 AM CDT) PSA 1.1 0.0 - 4.0 ng/mL [facility] - Comment: Sergio ECLIA methodology. According to the [place] [employer], Serum PSA should decrease and [...] - 01/30/2025 9:09 AM CDT Performed at: [address] [id number] Orchestra Director: Ricardo Obrien PhD, Phone: [phone] Michael Wiggins MD LAB BLOOD ORDERABLES Final Result Performing Organization Address [facility] de Phone Number [facility] - * Hepatic function panel (01/29/2025 8:39 AM CDT) Pathologist [facility] Protein, sr 7.2 6.0 - 8.5 g/dL [...] - 01/30/2025 9:09 AM CDT Performed at: [address] [id number] Orchestra Director: Ricardo Obrien PhD, Phone: [phone] Michael Wiggins MD LAB BLOOD ORDERABLES Final Result Performing Organization Address [facility] Co de Phone Number [facility] - * (ABNORMAL) Lipid panel (01/29/2025 8:39 AM CDT) Cholesterol 202(H) 100 - 199 mg/dL [facility] - 01 Triglycerides 118 0 - 149 mg/dL [facility] - 01 HDL Cholesterol 42 >39 mg/dL [facility] - 01 VLDL 21 5 - 40 mg/dL [facility] - 01 LDL, calculated 139(H) 0 - 99 mg/dL [facility] - 01 Blood 01/29/2025 8:39 AM CDT 01/29/2025 Narrative [facility] - 01/30/2025 9:09 AM CDT Performed at: [address] [id number] Orchestra Director: Ricardo Obrien PhD, Phone: [phone] us Michael Wiggins MD LAB BLOOD ORDERABLES Final Result [facility] - 01 * MRI Abdomen W WO Contrast (01/04/2025 8:25 PM ROPE LAYING MACHINE OPERATOR) Anatomical Region Laterality Modality Body N/A Magnetic Resonan ce 01/06/2025 10:4 3 AM ROPE LAYING MACHINE OPERATOR Narrative 01/06/2025 10:55 AM ROPE LAYING MACHINE OPERATOR EXAM DESCRIPTION: MRI ABDOMEN W WO CONTRAST [...] body of the pancreas (401/31), 0.7 cm o
--- OUTSIDE RECORDS SUMMARY | 2025-03-26 11:39 | XMS_ITS | Encounter Summary ---
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 [address] [place] [address] [place] [address] PCP - General Internal Medicine 02/18/19 documented as of this encounter
--- OUTSIDE RECORDS SUMMARY | 2025-03-26 11:39 | XMS_ITS | Encounter Summary ---
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
--- OUTSIDE RECORDS SUMMARY | 2025-03-26 11:39 | XMS_ITS | Encounter Summary ---
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 Gender Identity Not on file Sexual Orientation Not on file 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 on file Not on f ile documented as of this encounter Plan of Treatment Not on file documented as of this encounter Procedures Procedure Name Priority Date/Time Associated Diagnosis Comments SCAN - RADIOLOGY/IMAGING 03/05/2025 documented in this encounter Results * SCAN - RADIOLOGY/IMAGING (03/05/2025) Anatomical Region Laterality Modality Other us Provider Scanning Final Result documented in this encounter Visit Diagnoses Not on filedocumented in this encounter Care Teams Pipeline Controller Relationship Specialty Start Date End Date Michael Wiggins MD [address] [facility] [address] [place] [address] [place] [address] PCP - General Internal Medicine 02/18/19 documented as of this encounter
--- NOTE | 2025-03-26 11:50 | ECG_ITS ---
Test Date: 2025-03-26 11:59:39 Measurements Intervals [place] Rate: 67 P: 55 NV: 179 QRS: -2 QRSD: 93 T: 11 QT: 368 QTc: 391 Interpretive Statements SINUS RHYTHM NORMAL ECG No previous ECG available for comparison Electronically Signed On 03-26-2025 13:02:08 CDT by Theron Ahmadi M.D.
[2025-03-26 11:54] LABS: Hematocrit 44.6 % (42.0-52.0); Hemoglobin 14.4 g/dL (14.0-18.0)
[2025-03-26 12:11] LABS: Albumin Level 4.7 g/dL (3.5-5.1); Estimated Glomerular Filt Rate 50; Glucose 98 mg/dL (65-110)
== END 2025-03-26 11:37 | disposition home or self-care (01) ==
LOC: ANHLAB 11:37
PROVIDERS: PCP Internal Medicine; Visit Provider Orthopaedic Surgery
DX: M75.102 Unspecified rotator cuff tear or rupture of left shoulder, not specified as traumatic (principal); E78.5 Hyperlipidemia, unspecified; I10 Essential (primary) hypertension
CPT/HCPCS: 36415; 82040; 82565; 82947; 85014; 85018; 93005

== ENCOUNTER 2025-05-07 10:56 | Outpatient (CLI) | payer OTHER, SELFPAY ==
--- NOTE | ~2025-05-07 | CT_ITS ---
EXAMINATION: CT_STKSHOLDWO_CT DATE: 05/07/2025 11:18 INDICATION: Preoperative planning TECHNIQUE: High resolution computed tomography (CT) of the left shoulder was performed without intrav enous contrast. Additional sagittal and coronal reconstructions were performed. Automated exposure co ntrol and iterative reconstruction technique were employed. The dose-length product was 644.29 mGy-cm . COMPARISON: None FINDINGS: Bone alignment is normal. No fracture. Mild to moderate osteoarthritis at the left glenohumeral and a cromioclavicular joints. No evident glenohumeral joint effusion. No asymmetric atrophy musculature of the left shoulder girdle. Visualized portion of the left lung is clear. Calcified left hilar lymph n odes consistent with old granulomatous disease. Small multifocal atherosclerotic coronary artery calc ific lesion. No pericardial effusion. No pathologically enlarged left axillary or hilar lymphadenopat hy. IMPRESSION: 1. 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 Reviewed, dictated and finalized at location B.
== END 2025-05-07 10:57 | disposition home or self-care (01) ==
PROVIDERS: PCP Internal Medicine; Visit Provider Orthopaedic Surgery
DX: Z01.818 Encounter for other preprocedural examination (principal); M75.102 Unspecified rotator cuff tear or rupture of left shoulder, not specified as traumatic; M19.012 Primary osteoarthritis, left shoulder
CPT/HCPCS: 73200

== ENCOUNTER 2025-06-15 11:40 | Outpatient (CLI) | payer OTHER, SELFPAY ==
--- OUTSIDE RECORDS SUMMARY | 2025-06-15 12:19 | XMS_ITS | Clinical Summary ---
Author Organization [facility] Address [address] [place] [address] Care Team Providers Care Clothes Wringer Name Role Phone Michael Wiggins MD Primary Care Provider [phone] Allergies No known active allergies Medications olmesartan (BENICAR) 40 mg tablet Take 1 tablet (40 mg total) by mouth daily 90 tablet 3 4 Active cholecalciferol (VITAMIN D-3) 2000 unit capsule Take 1 capsule (2,000 Units total) by mouth daily 90 capsule 3 5 026 Active sodium bicarbonate 650 mg tabletIndicatio ns:Stage 3a chronic kidney disease (HCC) Take 2 tablets (1,300 mg total) by mouth 2 (two) times a day 5 026 Active doxazosin (CARDURA) 4 mg tablet TAKE 1 TABLET DAILY 90 tablet 1 5 Active amLODIPine (NORVASC) 10 mg tablet TAKE 1 TABLET DAILY 90 tablet 1 5 Active traMADol-acetam inophen (ULTRACET) 37.5-325 mg per tablet Take 1 tablet by mouth every 6 (six) hours as needed for pain for pain 270 tablet 5 Active traMADol-acetam inophen (ULTRACET) 37.5-325 mg per tablet Take 1 tablet by mouth every 6 (six) hours as needed for pain for pain 270 tablet 1 5 025 Discontinued Active Problems Problem Noted Date Diagnosed Date [...] 05/12/2023 Assessment & Plan (12/13/2024 5:44 PM LEGAL RECEPTIONIST): Continue Farxiga. Avoid NSAIDs. Followed by the business intelligence etl developer Assessment & Plan (07/05/2024 7:26 AM CDT): Continue Farxiga. Avoid NSAIDs. Followed by the business intelligence etl developer Assessment & Plan (01/16/2024 7:40 AM LEGAL RECEPTIONIST): Continue Farxiga. Avoid NSAIDs. Followed by the business intelligence etl developer Assessment & Plan (09/12/2023 7:58 AM CDT): Continue Farxiga. Avoid NSAIDs. Followed by the business intelligence etl developer Assessment & Plan (05/12/2023 8:38 AM CDT): Patient with persistent chronic kidney disease. He increase fluid intake. He does not use NSAIDs. Will start him on Farxiga 10 mg daily. Will make him a referral to see a business intelligence etl developer for further evaluation. Open wound of finger with tendon injury 01/24/20 Overview (01/23/2023): Added automatically from request for surgery [id number] Trigger finger of right thumb 09/05/2022 Overview (09/05/2022): Added automatically from request for surgery [id number] Carpal tunnel syndrome, right 09/04/2022 Right wrist pain 09/04/2022 Morbid obesity 03/14/2022 Assessment & Plan (12/13/2024 5:44 PM LEGAL RECEPTIONIST): BMI Follow-up includes: nutrition counseling. The patient [...] changes. Assessment & Plan (01/16/2024 7:40 AM LEGAL RECEPTIONIST): BMI Follow-up includes: nutrition counseling. The patient was advised to exercise 5 times a week for 30 minutes each time. We discussed low calorie diet. Discussed lifestyle changes. Assessment & Plan (11/18/2022 8:59 AM LEGAL RECEPTIONIST): BMI Follow-up includes: nutrition counseling. The patient [...] 05/31/2021 Assessment & Plan (12/13/2024 5:44 PM LEGAL RECEPTIONIST): Patient will see a different orthopedic surgeon for 2nd opinion Assessment & Plan (11/18/2022 7:47 AM LEGAL RECEPTIONIST): Patient takes tramadol as needed. He was followed by orthopedic doctor. He is not interested in surgery at this time. LON (obstructive sleep apnea) 03/06/2021 Assessment & Plan (12/13/2024 5:44 PM LEGAL RECEPTIONIST): Patient uses CPAP machine on regular basis Assessment & Plan (07/05/2024 7:26 AM CDT): Patient uses CPAP machine on regular basis Assessment & Plan (01/16/2024 7:40 AM LEGAL RECEPTIONIST): Patient uses CPAP machine on regular basis Assessment & Plan (05/12/2023 8:38 AM CDT): Patient uses CPAP machine on regular basis Assessment & Plan (11/18/2022 7:46 AM LEGAL RECEPTIONIST): Patient uses CPAP machine on regular basis [...] 03/28/2020 Assessment & Plan (01/16/2024 8:42 AM LEGAL RECEPTIONIST): Patient is maintained on tramadol p.r.n. with [...] 06/08/2018 Assessment & Plan (12/13/2024 5:43 PM LEGAL RECEPTIONIST): Continue current medications. Discussed low-salt diet. Discussed exercise on regular basis. Will continue to monitor Assessment & Plan (07/05/2024 7:26 AM CDT): Continue current medications. Discussed low-salt diet. Discussed exercise on regular basis. Will continue to monitor Assessment & Plan (01/16/2024 7:39 AM LEGAL RECEPTIONIST): Continue current medications. Discussed low-salt diet. Discussed [...] monitor Assessment & Plan (11/18/2022 7:46 AM LEGAL RECEPTIONIST): Continue current medications. Discussed low-salt diet. Discussed [...] 08/09/2016 Assessment & Plan (01/16/2024 7:39 AM LEGAL RECEPTIONIST): Asymptomatic Assessment & Plan (05/12/2023 8:37 AM [...] 08/09/2016 Assessment & Plan (12/13/2024 5:43 PM LEGAL RECEPTIONIST): Continue low-fat diet and exercise Assessment & Plan (01/16/2024 7:39 AM LEGAL RECEPTIONIST): Continue low-fat diet and exercise Assessment & Plan (05/12/2023 8:37 AM CDT): Continue low-fat diet and exercise Assessment & Plan (11/18/2022 7:46 AM LEGAL RECEPTIONIST): Controlled on current medications. Continue low-fat diet. 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 Gender Identity Not on file Sexual Orientation [...] CDT Respiratory Rate 16 12/13/2024 4:16 PM LEGAL RECEPTIONIST Oxygen Saturation 98% 12/13/2024 4:16 PM LEGAL RECEPTIONIST Inhaled Oxygen Concentration - - Weight 113.4 kg (250 lb) 01/27/2025 10:14 AM CDT Height 177.8 cm (5' 10) 01/27/2025 10:14 AM CDT Body Mass Index 35.87 01/27/2025 10:14 AM CDT Plan of Treatment Health Maintenance Due Date Last Done Comments Hepatitis B Screening 1978 Pneumococcal vaccine 65+ (1 of 1 - PCV) 2010 Zoster Vaccine (1 of 2) 2010 Colon Cancer Screening-DNA Stool 02/27/2025 02/28/20 22, 08/30/2010 Well Visit 65+ 2025 Influenza Vaccine (#1) 2025 2, 08/31/2021, 08/28/2020, Additional history exists Depression Screening 12/13/2025 12/13/2024, 07/05/2024, 01/16/2024, Additional history exists Fall Risk Assessment 12/13/2025 12/13/2024, 07/05/2024, 01/16/2024, Additional history exists Prostate Cancer Screening-PSA 01/29/2027, 04/03/2024, 09/06/2023, Additional history exists DTaP/Tdap/Td Vaccine (3 - Td or Tdap) 01/20/2033 01/20/2023, 03/14/2022 Colon Cancer Screening-CT Colonography Discontinued 08/30/2010 Colon Cancer Screening-Colonoscopy Discontinued 08/30/2010 Colon Cancer Screening-Sigmoidoscopy Discontinued 08/30/2010 Hepatitis C Screening Completed 12/20/2021 Colon Cancer Screening-FIT Discontinued 02/27/2022, Procedures Procedure Name Priority Date/Time Associated Diagnosis Comments SCAN - RADIOLOGY/IMAGING 05/07/2025 PSA SCREEN Routine 01/29/2025 8:39 AM CDT Prostate cancer screening STOOL DNA COLOGUARD Routine 02/27/2022 8:00 AM CDT Colon cancer screening HEPATITIS C ANTIBODY Routine 12/20/2021 9:03 AM LEGAL RECEPTIONIST Encounter for hepatitis C screening test for low risk patient HM COLONOSCOPY Routine 08/30/2010 from Last 3 Months or Most Recently Relevant to Health Maintenance Results * SCAN - RADIOLOGY/IMAGING (05/07/2025) Anatomical Region Laterality Modality Other us Provider Scanning Final Result * PSA screen (01/29/2025 8:39 AM CDT) PSA 1.1 0.0 - 4.0 ng/mL [facility] - Comment: Sergio ECLIA methodology. According to the [place] U[employer] Association, Serum PSA should decrease and [...] 01/30/2025 9:09 AM CDT Performed at: - [facility] [id number] [employer] Supervisor: Ricardo Obrien PhD, Phone: [phone] Michael Wiggins MD LAB BLOOD ORDERABLES Final Result [facility] - 01 * Stool DNA - Cologuard (02/27/2022 8:00 AM CDT) Stool DNA - Cologuard Negative Negative [facility] (CLIA #:[id number]) Comment: NEGATIVE TEST RESULT. A negative Cologuard [...] Philip et al, N Engl J Med 2014;370(14):6378-4159) The normal value (reference range) for this assay is negative. COLOGUARD RE-SCREENING RECOMMENDATION: Periodic colorectal cancer screening is an important part of preventive healthcare for asymptomatic individuals at average risk for colorectal cancer. Following a negative Cologuard result, the [place] Cancer Society and U.S. Multi-Society Task Force screening guidelines recommend a Cologuard re-screening interval of 3 years. References: [place] Cancer Society Guideline for Colorectal Cancer Screening: https://www.cancer.org/cancer/bxsnt-assffj-uimlhg/vfrrbufei-mqaxgvjql-uowivrw/ac s-rec ommendations.html.; Mike NIÑO, Steph YORK, Kenny GunnK, Colorectal Cancer Screening: Recommendations for Physicians and Patients from the U.S. Multi-Society Task Force on Colorectal Cancer Screening , Am J Gastroenterology 2017; 112:3477-2525. TEST DESCRIPTION: Composite algorithmic analysis of stool [...] Reid. et al, N Engl J Med 2014;370(14):6586-9582.) Cologuard may produce a false negative or false positive result (no colorectal cancer or precancerous polyp present at colonoscopy follow up). A negative Cologuard test result does not guarantee the absence of CRC or advanced adenoma (pre-cancer). The current Cologuard screening interval is every 3 years. ([place] Cancer Society and U.S. Multi-Society Task Force). Cologuard performance data in a 10,000 patient pivotal study using colonoscopy as the reference method can be accessed at the following location: www.Shopnlist/results. Additional description of the Cologuard test process, warnings and precautions can be found at www.cologuard.com. Stool 02/27/2022 8:00 AM CDT 03/01/2022 11:32 AM CDT us Michael Wiggins MD LAB BODY FLUIDS AND STOOLS ORDERABLES Final Result [facility] (CLIA #:[id number]) [place] [address] * Hepatitis C antibody (12/20/2021 9:03 AM LEGAL RECEPTIONIST) Hep C Ab 0.1 0.0 - 0.9 s/co ratio [facility] - 01 Comment: Negative: < 0.8 Indeterminate: 0.8 - 0.9 Positive: > 0.9 The CDC recommends that a positive HCV antibody result be followed up with a HCV Nucleic Acid Amplification test (623175). Blood specimen (specimen) 12/20/2021 9:03 AM LEGAL RECEPTIONIST 12/20/2021 Narrative [facility] - 12/21/2021 9:11 AM LEGAL RECEPTIONIST Performed at: 01 - [facility] [id number] [employer] Supervisor: Ricardo Obrien PhD, Phone: [phone] Michael Wiggins MD LAB MICROBIOLOGY - GENERAL ORDERABLES Final Result [facility] - 01 * COLONOSCOPY (08/30/2010) Pathologist [facility] Colonoscopy Unknown Historical Provider HEALTH MAINTENANCE Final Result from Last 3 Months or Most Recently Relevant to Health Maintenance Insurance [facility] [address] Care Teams Clothes Wringer Relationship Specialty Start Date End Date Michael Wiggins MD [facility] [facility] [place] [address] PCP - General Internal Medicine 02/18/19
--- OUTSIDE RECORDS SUMMARY | 2025-06-15 12:19 | XMS_ITS | Encounter Summary ---
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
--- OUTSIDE RECORDS SUMMARY | 2025-06-15 12:19 | XMS_ITS | Encounter Summary ---
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 Gender Identity Not on file Sexual Orientation Not on file 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 on file Not on f ile documented as of this encounter Plan of Treatment Not on file documented as of this encounter Procedures Procedure Name Priority Date/Time Associated Diagnosis Comments SCAN - RADIOLOGY/IMAGING 05/07/2025 documented in this encounter Results * SCAN - RADIOLOGY/IMAGING (05/07/2025) Anatomical Region Laterality Modality Other us Provider Scanning Final Result documented in this encounter Visit Diagnoses Not on filedocumented in this encounter Care Teams Photographer News Relationship Specialty Start Date End Date Michael Wiggins MD [address] [facility] [address] [place] [address] [place] [phone] PCP - General Internal Medicine 02/18/19 documented as of this encounter
--- OUTSIDE RECORDS SUMMARY | 2025-06-15 12:19 | XMS_ITS | Encounter Summary ---
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
[2025-06-15 13:11] LABS: Hematocrit 43.9 % (42.0-52.0); Hemoglobin 14.4 g/dL (14.0-18.0); Immature Granulocyte Percent A 0.3 % (0-0.5); Lymphocytes Absolute Auto 1.64 K/mm3 (0.9-3.2); Mean Corpuscular HGB Conc 32.8 g/dl (32-36); Mean Corpuscular Hemoglobin 28.7 pg (26-34); Mean Corpuscular Volume 87.6 fl (80-100); Nucleated Red Blood Cells Absolute Auto 0.000 K/mm3 (0.0-0.012); Nucleated Red Blood Cells Perc 0.0 % (0.0-0.2); Platelet Count Result 252 k/mm3 (150-375); Red Blood Count 5.01 M/mm3 (4.6-6.20); White Blood Count 9.0 K/mm3 (4.5-10.0)
[2025-06-15 14:22] LABS: MRSA (PCR) NOT DETECTED (NOT DETECTE)
== END 2025-06-15 11:41 | disposition home or self-care (01) ==
LOC: ANHSURGERY 11:45
PROVIDERS: PCP Internal Medicine; Visit Provider Orthopaedic Surgery
DX: Z01.812 Encounter for preprocedural laboratory examination (principal); M75.102 Unspecified rotator cuff tear or rupture of left shoulder, not specified as traumatic
CPT/HCPCS: 36415; 85025; 87641

== ENCOUNTER 2025-07-05 01:01 | Day surgery (SDC) | payer OTHER, SELFPAY ==
--- NOTE | 2025-06-15 11:50 | PC.NURSE ---
Report to the Outpatient Waiting Room, entrance under the green pavilion located off [facility], at time _8 AM on date __07/05/25 . Planned Procedure Time: __10 AM .? Time changes happen often and if your time is changed the preop area will call you the afternoon before. - You and your visitor will be asked to self-screen and do not enter if you have any COVID symptoms. Please call surgeon if you need to reschedule. - A mask is optional within the hospital at this time. Patients may have clear liquids (water, carbonated beverages, clear teas, apple juice) until 3 hours prior to surgery ( 7AM) with a maximum of 20 ounces. - No food from midnight until time of surgery and no smoking, or chewing tobacco (or any form of nicotine). No chewing gum, candy or mints. Take only the following medications with a SIP of water on the morning of surgery: NONE DO NOT STOP ANY OF YOUR OTHER PRESCRIPTION MEDICATIONS PRIOR TO SURGERY EXCEPT THE FOLLOWING Hold all vitamins and supplements for 3 days per anesthesiologist.LAST DOSE 07/01/25 Medications to discontinue per physician NONE Date to take last dose Please no make-up, nail mongolian, hairspray, perfume, deodorant, or body powder the day of surgery.? No jewelry (including any body piercings) or valuables the day of surgery, leave them at home.? Please take a shower or bath the night before, or the morning of, surgery with an antibacterial soap.? Wear comfortable, loose fitting clothing.? Children are encouraged to wear pajamas. - Jewelry must be removed prior to entering the operating room.? Rings and piercings that are not removed may be cut off. - The hospital will not accept responsibility for valuables.? - Please leave all valuables, including medications, at home the day of surgery. If you are going home after surgery, a licensed bull driver must drive you home.? - NO public transportation without another adult if you receive anesthesia. - We recommend that an adult stay with you for 24 hours following discharge. - We also recommend that you do not drive, make important decision, drink alcoholic beverages, or take any drugs that were not prescribed by your health care provider for at least 24 hours after your discharge time. For Pediatric surgeries, we recommend two adults accompany the child home. Follow any additional instructions given to you from your surgeon. VERBAL AND WRITTEN instructions given to __PATIENT AND SISTER and asked if any additional questions and then verbalized understanding. Patient advised to call surgeon office or pre surgery nurse liaison [phone] if any additional questions.
[2025-06-15 12:25] VITALS: BP 175/88; PULSE 68; RESP 18; TEMP 36.9; O2SAT 98; BMI 35.4
[2025-07-05] VITALS (11 sets, daily range): BP systolic 104–148; BP diastolic 68–79; PULSE 71–98; RESP 12–20; TEMP 35.8–36.6; O2SAT 94–100
--- NOTE | ~2025-07-05 | XR_ITS ---
EXAMINATION: XR shoulder LT min 2V DATE: 07/05/2025 13:21 CDT INDICATION: Postop left reverse total shoulder arthroplasty TECHNIQUE: 2 views left shoulder FINDINGS: There is a left reverse total shoulder arthroplasty in expected position. Subcutaneous gas with fluid and air in the joint are consistent with recent surgery. No evidence of periprosthetic fracture. IMPRESSION: 1. Recent left reverse total shoulder arthroplasty. Reviewed, dictated and finalized at location O.
--- NOTE | 2025-07-05 07:14 | WPDHPUPDATE1 ---
History and Physical Update Update Date/Time: 07/05/25 07:14 History and Physical has been reviewed, including an updated exam of the patient. There are NO changes in the patient's condition. Risks, benefits, and alternatives have been discussed and questions answered. Patient agrees to proceed with procedure.
[2025-07-05] MEDS: ACETAMINOPHEN 500 MG TABLET 1000 MG PO (08:20)
[2025-07-05] MEDS: TRANEXAMIC ACID 1,000MG/ISO100 1,000 MG/100 ML BAG 200 MG IVPB (08:20)
[2025-07-05] MEDS: LACTATED RINGERS 1,000 ML 30 ML IV CONT ×2 (08:30→13:00)
--- NOTE | 2025-07-05 10:16 | WPDANESEPPF ---
Anes - Initial Pre Proc Eval Procedure: Operation Date: 07/05/25 10:00 Proposed Procedures p Left Reverse Total Shoulder Arthroplasty - Francesco Morin MD Date/Time: 07/05/25 10:16 Surgeon: Francesco Morin MD Pre Op Diagnosis: complete rotator cuff tear left shoulder Patient Data Age: 65 Gender: M Height: 1.78 m Weight: 110.9 kg Last Vital Signs Temp 97.8 F 07/05/25 08:20 Pulse 71 07/05/25 08:20 Resp 16 07/05/25 08:20 BP 148/79 H 07/05/25 08:20 Pulse Ox 100 07/05/25 08:20 O2 Del Method Room Air 07/05/25 08:20 Allergies Allergy/AdvReac Type Severity Reaction Status Date / Time No Known Allergies Allergy Verified 07/05/25 08:31 Home Medications ?Medication ?Instructions ?Recorded ?Confirmed ?Type amlodipine 10 mg tablet (Norvasc) 10 mg PO QPM 12/17/24 06/15/25 History cholecalciferol (vitamin D3) 50 50 mcg PO DAILY 12/17/24 06/15/25 History mcg (2,000 unit) capsule doxazosin 4 mg tablet (Cardura) 4 mg PO QPM 12/17/24 06/15/25 History olmesartan 40 mg tablet 40 mg PO QPM 12/17/24 06/15/25 History sodium bicarbonate 650 mg tablet 650 mg PO DAILY PRN KIDNEY 12/17/24 06/15/25 History tramadol 37.5 mg-acetaminophen 325 1 tablet PO Q6H PRN pain 12/17/24 07/05/25 History mg tablet Laboratory Tests 07/05/25 08:16 Blood Type A Positive Antibody Screen Negative Patient hx anesthesia problems: none Family hx anesthesia problems: none Results Review: All pre-operative results and documents have been reviewed as part of the pre-operative evaluation. [facility] Past Medical History Medical History Sleep apnea wears cpap nightly Obesity Hypertension Hyperlipidemia Anxiety No pertinent past medical history Surgical History Surgical History History of hand surgery (~10/16/23) Lt Index Trigger Finger Release History of hand surgery (~01/20/23) Lt Thumb History of hand surgery (~10/01/22) Rt: Carpal tunnel release, Rt Thumb & Small Finger Trigger Release History of carpal tunnel surgery of left wrist (~2019) History of back surgery (~1994) herniated disc No pertinent past surgical history Family History Family History Mother Diabetes mellitus Father Hypertension Cerebrovascular accident Social History Social History Smoking status: Never smoker Alcohol intake: never Do You Feel Safe in your Home?: Yes Lack of Transportation: No Lack of Food: Never True Current Housing: I Have Housing Concerned About Future Housing: No Difficulty Paying Gas/Electric Bills: No Difficulty Paying for Meds: No Currently Unemployed: No Education: High School Diploma/GED Difficulty w/ Childcare or Family Care: No Living arrangements: alone Spiritual care concerns: No Anes - Eval Final PreProcedure Day of Procedure 07/05/25 10:16 Patient weight: obese Heart: regular rate and rhythm Lungs: clear to auscultation Airway: Mallampati scale class II Neurological: alert and oriented Last oral intake: >/= 8 hours ASA classification: III Emergent: no Anesthetic plan: proceed Anesthesia type and monitoring: general ETT and standard monitoring Results Review: All pre-operative results and documents have been reviewed as part of the pre-operative evaluation. Informed Consent: The patient's anesthetic plan and its attendant risks and benefits were discussed with the patient/family/POA. Questions were solicited and answers provided to the satisfaction of the patient/family/POA.
[2025-07-05] MEDS: ceFAZolin 2 GM in SODIUM CHLORIDE 0.9% IV 50 ML 100 ML IVPB ×2 (10:24→17:24)
[2025-07-05] MEDS: SODIUM CHLORIDE 0.9% IV 37.7 ML, MORPHINE SULFATE INJ (*CRX) 2 MG, ROPivacaine HCL 1% 2... INFILTRATE (10:33)
[2025-07-05] MEDS: TRANEXAMIC ACID 1,000 MG/10 ML AMPUL 1000 MG IV PUSH (12:25)
[2025-07-05] MEDS: KETOROLAC 15 MG/ML VIAL (*BKC) IV PUSH (12:26)
[2025-07-05] MEDS: fentaNYL CITRATE INJ (*CRX) 100 MCG/2 ML VIAL 25 MCG IV PUSH ×4 (13:29→14:00)
--- NOTE | 2025-07-05 14:41 | ADMGEN ---
This patient, Jayy Nevarez, was admitted to 3 [facility] Surg Room 309-01. Patient/family oriented to hospital policies and general routines including ID bracelet, bed and alarms, visiting hours, pain management, procedures, bathroom and other care routines, personal items, smoking policy, room service/diet, and visiting hours. Information on how to activate the Rapid Response Team has been discussed. Patient/Family are encouraged to report perceived risks to care and to ask questions if they do not understand what they are told or what they should do.
[2025-07-05] MEDS: oxyCODONE/ACETAMINOPHEN (*CRX) 5-325 MG TABLET 1 TABLET PO (14:52)
--- NOTE | 2025-07-05 16:37 | P.OP_ITS ---
Procedure Note - Detailed Date of Procedure 07/05/25 Pre-op Diagnosis Rotator cuff tear arthropathy left shoulder Post-op Diagnosis Same Procedure Performed Reverse total shoulder arthroplasty, left Surgeon Francesco Morin MD Anesthesia General Findings Excellent bone quality. Large superior rotator cuff tear. Mild to moderate early arthritis with significant grade 3 chondromalacia diffusely on the humerus. Small osteophytes forming on the humerus. No contracture. Three dimensional preoperative planning showed inclination of the glenoid 13? superior and 8? glenoid retroversion. 51% subluxation. Correction obtained with a 10 degree augment placed superior/posterior. Description of Procedure Preoperative antibiotics were given. The patient was transferred to the operating room and a general anesthetic was administered. The beach chair position was used at 45 degrees. All bony prominences were padded. The head was carefully stabilized on the [facility] cigar head piercer. A sterile prep and drape was performed in the usual manner with ChloraPrep. A longitudinal incision was created at the anterior shoulder just lateral to the deltopectoral interval. Careful dissection was performed to expose the interval and protect the cephalic vein. The vein was retracted medially. Anterior circumflex vessel branches were suture ligated. The biceps was tenodesed. A subscapularis tenotomy was performed. The inferior capsule was released, exposing the humeral head. Osteophytes were removed. Care was taken to stay on bone to protect the axillary nerve. The neck anteversion and inclination were carefully assessed. Version was between 20? and 30?. The anatomic head cut was taken with the oscillating saw. The cut protector was placed, and attention was turned to the glenoid. Retractors were placed. Releases were carried out for exposure. The subscap ularis was mobilized, the inferior capsule and long head of triceps released, and the superior and middle glenohumeral ligaments released as well. Labral tissue was resected as needed. Version and inclination were corrected according to preoperative templating. The sizing template was used to assess the baseplate position low on the glenoid, with an approximate 5 degrees corrections of retroversion and 10 degrees of inclination. A guide pin was placed. Minimal reaming was used to accomplish a flat surface without violating the subchondral bone. The boss was drilled, and the real component was impacted into position. The central compression screw was placed. Supplemental locking screws were placed superiorly, and inferiorly. The glenosphere was impacted into the taper. Attention was turned to the humerus. The guide pin was placed, central drilling performed, and the broach trial inserted. The proximal humerus was reamed for the inset component. The humeral components were trialed. The real humeral stem, tray, and insert were impacted into position. The shoulder was copiously irrigated periodically with pulsatile lavage. The shoulder was reduced and stability confirmed. 1 gram of Vancomycin powder was placed in the joint. The biceps tenodesis was incorporated with the pectoralis tendon repair. The remaining tissue was closed with 2-0 Vicryl, 3-0 Stratafix and 4-0 Stratafix, and steri-strips. A sterile silver occlusive dressing and shoulder immobilizer were placed. The patient was transferred to the recovery room. Implants Shoulder [employer]ations reverse TSA size 0 stem. +3 polyethylene insert. 10 augmented baseplate. 36 + 6 mm glenosphere. Estimated Blood Loss 100 Drains No Pathology None sent Complications No immediate complications Condition Stable Disposition PACU [facility] Billing Surgery - Charge Forward: Surgery Billing
[2025-07-05] MEDS: ACETAMINOPHEN 325 MG TABLET 650 MG PO ×2 (17:20→23:54)
[2025-07-05] MEDS: DOXAZOSIN MESYLATE 4 MG TABLET PO (17:22)
[2025-07-05] MEDS: OLMESARTAN MEDOXOMIL 20 MG TABLET 40 MG PO (17:22)
[2025-07-05] MEDS: ASPIRIN 81 MG ENTERIC TABLET PO (17:23)
[2025-07-05] MEDS: MELOXICAM 7.5 MG TABLET PO (21:07)
[2025-07-05] MEDS: SENNA/DOCUSATE SODIUM TABLET 2 TAB PO (21:07)
[2025-07-06 00:09] VITALS: BP 118/70; PULSE 86; RESP 20; TEMP 37; O2SAT 96
[2025-07-06] MEDS: ceFAZolin 2 GM in SODIUM CHLORIDE 0.9% IV 50 ML 100 ML IVPB (02:45)
[2025-07-06 04:09] VITALS: BP 119/71; PULSE 82; RESP 18; TEMP 36.8; O2SAT 97
[2025-07-06] MEDS: ACETAMINOPHEN 325 MG TABLET 650 MG PO (05:46)
[2025-07-06 06:45] LABS: Hematocrit 39.2 % (42.0-52.0); Hemoglobin 12.7 g/dL (14.0-18.0); Immature Granulocyte Percent A 0.7 % (0-0.5); Lymphocytes Absolute Auto 0.64 K/mm3 (0.9-3.2); Mean Corpuscular HGB Conc 32.4 g/dl (32-36); Mean Corpuscular Hemoglobin 29.0 pg (26-34); Mean Corpuscular Volume 89.5 fl (80-100); Nucleated Red Blood Cells Absolute Auto 0.000 K/mm3 (0.0-0.012); Nucleated Red Blood Cells Perc 0.0 % (0.0-0.2); Platelet Count Result 245 k/mm3 (150-375); Red Blood Count 4.38 M/mm3 (4.6-6.20); White Blood Count 20.9 K/mm3 (4.5-10.0)
[2025-07-06 07:04] LABS: Anion Gap 9 mmol/L (4-12); Blood Urea Nitrogen 26 mg/dL (9-20); Calcium 8.8 mg/dL (8.4-10.2); Carbon Dioxide 21 mmol/L (22-30); Chloride 108 mmol/L (98-107); Estimated CRCL calculation 54 ml/min; Estimated Glomerular Filt Rate 46; Glucose 119 mg/dL (65-110); Potassium 4.8 mmol/L (3.4-5.0); Sodium 138 mmol/L (137-145)
--- NOTE | 2025-07-06 07:54 | P.PNAN_ITS ---
Anes - Prog Note Post-Op Date/Time: 07/06/25 07:54 Cardiovascular status: normal Respiratory status: normal Airway patency: baseline Mental status: baseline Post-Op hydration status: normal Vital Signs: Last Vital Signs Temp 98.2 F 07/06/25 04:09 Pulse 82 07/06/25 04:09 Resp 18 07/06/25 04:09 BP 119/71 07/06/25 04:09 Pulse Ox 97 07/06/25 04:09 O2 Del Method Room Air 07/05/25 21:07 O2 Flow Rate 8 07/05/25 13:15 Pain Score (VAS): 0/10 I/O: Intake & Output 07/05/25 07/05/25 07/06/25 15:59 23:59 07:59 Intake Total 1450 650 150 Balance 1450 650 150 Laboratory Tests 07/06/25 05:23 07/05/25 07/06/25 08:16 05:23 WBC Pending RBC Pending Hgb Pending Hct Pending MCV Pending MCH Pending MCHC Pending RDW Pending Plt Count Pending MPV Pending Immature Gran % (Auto) Pending Neut % (Auto) Pending Lymph % (Auto) Pending [place] % (Auto) Pending Eos % (Auto) Pending Baso % (Auto) Pending Lymph # (Auto) Pending [place] # (Auto) Pending Eos # (Auto) Pending Baso # (Auto) Pending Abs Immat Gran (auto) Pending Absolute Neuts (auto) Pending Absolute Nucleated RBC Pending Nucleated RBC % Pending Sodium 138 Potassium 4.8 Chloride 108 H Carbon Dioxide 21 L Anion Gap 9 BUN 26 H Creatinine 1.54 H Estim Creat Clear Calc 54 Estimated GFR 46 L Glucose 119 H Calcium 8.8 Blood Type A Positive Antibody Screen Negative Post-procedural complaints: none Patient Feedback: Patient satisfied with anesthetic care.
[2025-07-06 08:00] VITALS: BP 138/79; PULSE 81; RESP 18; TEMP 36.4; O2SAT 95
[2025-07-06] MEDS: CHOLECALCIFEROL (VITAMIN D3) 25 MCG (1,000 UNITS) TABLET 50 MCG PO (09:37)
[2025-07-06] MEDS: ASPIRIN 81 MG ENTERIC TABLET PO (09:37)
[2025-07-06] MEDS: MELOXICAM 7.5 MG TABLET PO (09:38)
== END 2025-07-06 10:32 | disposition home or self-care (01) ==
LOC: ANHSURGERY 07:39 → ANH3MEDSUR 14:32
PROVIDERS: PCP Internal Medicine; Visit Provider Orthopaedic Surgery
PROC: (CPT 23472; principal; 2025-07-05 10:00)
DX: M75.102 Unspecified rotator cuff tear or rupture of left shoulder, not specified as traumatic (principal); M19.012 Primary osteoarthritis, left shoulder; M94.212 Chondromalacia, left shoulder; M25.712 Osteophyte, left shoulder; E78.5 Hyperlipidemia, unspecified; I10 Essential (primary) hypertension; F41.9 Anxiety disorder, unspecified; G47.30 Sleep apnea, unspecified; E66.9 Obesity, unspecified; Z68.35 Body mass index [BMI] 35.0-35.9, adult; Z79.891 Long term (current) use of opiate analgesic; Z99.89 Dependence on other enabling machines and devices; Z98.890 Other specified postprocedural states; Z98.1 Arthrodesis status
CPT/HCPCS: 23472; 36415; 73030; 80048; 85025; 86850; 86900; 86901; 97110; 97161; 97165; 97530; 97535; J0690; A4565; A9270; C1776; J0166; J1100; J1171; J1885; J2003; J2250; J2270; J2371; J2405; J2704; J2795; J3010; J3373; J7120

== ENCOUNTER 2025-08-27 09:07 | Outpatient (CLI) | payer OTHER, SELFPAY ==
--- NOTE | ~2025-08-27 | CT_ITS ---
EXAMINATION: CT_STKSHORTWO_CT DATE: 08/27/2025 09:37 INDICATION: Right shoulder osteoarthritis. Preoperative planning. TECHNIQUE: Computed tomography (CT) of the right shoulder was performed without intravenous contrast. Automated exposure control and iterative reconstruction technique were employed. The dose-length product was 699.10 mGy-cm. COMPARISON: None FINDINGS: There is superior subluxation of the humeral head with narrowing of the subacromial space, consistent with rotator cuff tear. Subacromial spurring is noted. No fracture. There is moderate osteoarthritis of glenohumeral joint and severe osteoarthritis of acromioclavicular joint. There is moderate fatty atrophy of supraspinatus, infraspinatus, and teres minor muscle bellies. IMPRESSION: 1. Polyarticular osteoarthritis. 2. Rotator cuff tear. Reviewed, dictated and finalized at location E.
--- OUTSIDE RECORDS SUMMARY | 2025-08-27 09:11 | XMS_ITS | Encounter Summary ---
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
--- OUTSIDE RECORDS SUMMARY | 2025-08-27 09:11 | XMS_ITS | Encounter Summary ---
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
--- OUTSIDE RECORDS SUMMARY | 2025-08-27 09:11 | XMS_ITS | Encounter Summary ---
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 [facility] [address] [place] [address] [place] [phone] PCP - General Internal Medicine 02/18/19 documented as of this encounter
--- OUTSIDE RECORDS SUMMARY | 2025-08-27 09:11 | XMS_ITS | Encounter Summary ---
Author Organization [facility] Healthcare Address [address] [place] [address] Care Team Providers Care Ore Crusher Name Role Phone Michael Wiggins MD Primary Care Provider [phone] Encounter Details Date Type Department Care Team (Late st Contact Info) Description 07/24/2025 Results Follow-Up [facility] Medical Group Internal Medicine [address] [place] [phone] Michael Wiggins MD [address] [place] [phone] Stool DNA - Cologuard Social History Tobacco Use Types Packs/Day Years Used Date Smoking Tobacco: Never Passive Smoke Exposure: Never Smokeless Tobacco: Never Alcohol Use Standard Drinks/Week Comments Not Currently 0 (1 standard drink = 0.6 oz pur e alcohol) PHQ-2 Answer Date Recorded PHQ-2 Total Score (If total score is 3 or more points, staff should administer the PHQ-9) 0 12/13/2024 AUDIT-C Answer Date Recorded Q1: How often do you have a drink containing alcohol? Never 06/27/2025 Q2: How many drinks containi ng alcohol do you have on a typical day when you are drinking? Patient does not drink Q3: How often do you have si x or more drinks on one occasion? Never 06/27/2025 Personal Safety Answer Date Recorded Have you ever been in or are you currently in a harmful physical or emotional relationship or is someone making you feel afraid or unsafe? 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
--- OUTSIDE RECORDS SUMMARY | 2025-08-27 09:11 | XMS_ITS | Clinical Summary ---
Author Organization [facility] at the [facility] Address [address] [place] [address] Care Team Providers Care Follow Up Clerk Name Role Phone Michael Wiggins MD Primary Care Provider [phone] Allergies No known active allergies Medications cholecalciferol (VITAMIN D-3) 2000 unit capsule Take [...] pain for pain 270 tablet 5 Active olmesartan (BENICAR) 40 mg tablet TAKE 1 TABLET DAILY 90 tablet 3 5 Active olmesartan (BENICAR) 40 mg tablet Take 1 tablet (40 mg total) by mouth daily 90 tablet 3 4 025 Discontinued Active Problems Problem Noted Date Diagnosed Date Chronic bilateral low back pain without sciatica 07/05/2024 Assessment & Plan (06/27/2025 8:04 AM CDT): Patient with history of lumbar fusion. He continues to have chronic back pain. He takes tramadol as needed. I told him to start to cut down on the frequency of taking the medication and see how that works for him. Assessment & Plan (07/05/2024 8:34 AM CDT): [...] chronic kidney disease 05/12/2023 Assessment & Plan (06/27/2025 8:05 AM CDT): Continue Farxiga. Avoid NSAIDs. Followed by the psych sales specialist Assessment & Plan (12/13/2024 5:44 PM PROGRAM MANAGER SLP): Continue Farxiga. Avoid NSAIDs. Followed by the psych sales specialist Assessment & Plan (07/05/2024 7:26 AM CDT): Continue Farxiga. Avoid NSAIDs. Followed by the psych sales specialist Assessment & Plan (01/16/2024 7:40 AM PROGRAM MANAGER SLP): Continue Farxiga. Avoid NSAIDs. Followed by the psych sales specialist Assessment & Plan (09/12/2023 7:58 AM CDT): Continue Farxiga. Avoid NSAIDs. Followed by the psych sales specialist Assessment & Plan (05/12/2023 8:38 AM CDT): Patient with persistent chronic kidney disease. He increase fluid intake. He does not use NSAIDs. Will start him on Farxiga 10 mg daily. Will make him a referral to see a psych sales specialist for further evaluation. Open wound of finger with tendon injury 01/24/20 23 Overview (01/23/2023): Added automatically from request for surgery [id number] Trigger finger of right thumb 09/05/2022 Overview (09/05/2022): Added automatically from request for surgery [id number] Carpal tunnel syndrome, right 09/04/2022 Right wrist pain 09/04/2022 Morbid obesity 03/14/2022 Assessment & Plan (06/27/2025 8:05 AM CDT): BMI Follow-up includes: nutrition counseling. The patient was advised to exercise 5 times a week for 30 minutes each time. We discussed low calorie diet. Discussed lifestyle changes. Assessment & Plan (12/13/2024 5:44 PM PROGRAM MANAGER SLP): BMI Follow-up includes: nutrition counseling. The patient [...] changes. Assessment & Plan (01/16/2024 7:40 AM PROGRAM MANAGER SLP): BMI Follow-up includes: nutrition counseling. The patient was advised to exercise 5 times a week for 30 minutes each time. We discussed low calorie diet. Discussed lifestyle changes. Assessment & Plan (11/18/2022 8:59 AM PROGRAM MANAGER SLP): BMI Follow-up includes: nutrition counseling. The patient [...] 05/31/2021 Assessment & Plan (12/13/2024 5:44 PM PROGRAM MANAGER SLP): Patient will see a different orthopedic surgeon for 2nd opinion Assessment & Plan (11/18/2022 7:47 AM PROGRAM MANAGER SLP): Patient takes tramadol as needed. He was followed by orthopedic doctor. He is not interested in surgery at this time. LON (obstructive sleep apnea) 03/06/2021 Assessment & Plan (12/13/2024 5:44 PM PROGRAM MANAGER SLP): Patient uses CPAP machine on regular basis Assessment & Plan (07/05/2024 7:26 AM CDT): Patient uses CPAP machine on regular basis Assessment & Plan (01/16/2024 7:40 AM PROGRAM MANAGER SLP): Patient uses CPAP machine on regular basis Assessment & Plan (05/12/2023 8:38 AM CDT): Patient uses CPAP machine on regular basis Assessment & Plan (11/18/2022 7:46 AM PROGRAM MANAGER SLP): Patient uses CPAP machine on regular basis [...] 03/28/2020 Assessment & Plan (01/16/2024 8:42 AM PROGRAM MANAGER SLP): Patient is maintained on tramadol p.r.n. with [...] Hypertensive kidney disease 06/08/2018 Assessment & Plan (06/27/2025 8:05 AM CDT): Continue current medications. Discussed low-salt diet. Discussed exercise on regular basis. Will continue to monitor Assessment & Plan (12/13/2024 5:43 PM PROGRAM MANAGER SLP): Continue current medications. Discussed low-salt diet. Discussed exercise on regular basis. Will continue to monitor Assessment & Plan (07/05/2024 7:26 AM CDT): Continue current medications. Discussed low-salt diet. Discussed exercise on regular basis. Will continue to monitor Assessment & Plan (01/16/2024 7:39 AM PROGRAM MANAGER SLP): Continue current medications. Discussed low-salt diet. Discussed [...] monitor Assessment & Plan (11/18/2022 7:46 AM PROGRAM MANAGER SLP): Continue current medications. Discussed low-salt diet. Discussed [...] 08/09/2016 Assessment & Plan (01/16/2024 7:39 AM PROGRAM MANAGER SLP): Asymptomatic Assessment & Plan (05/12/2023 8:37 AM [...] off medications Dyslipidemia 08/09/2016 Assessment & Plan (06/27/2025 8:05 AM CDT): Continue low-fat diet and exercise Assessment & Plan (12/13/2024 5:43 PM PROGRAM MANAGER SLP): Continue low-fat diet and exercise Assessment & Plan (01/16/2024 7:39 AM PROGRAM MANAGER SLP): Continue low-fat diet and exercise Assessment & Plan (05/12/2023 8:37 AM CDT): Continue low-fat diet and exercise Assessment & Plan (11/18/2022 7:46 AM PROGRAM MANAGER SLP): Controlled on current medications. Continue low-fat diet. [...] Encounters Date Type Department Care Team Description 07/30/2025 10:23 AM CDT - 07/30/2025 11:59 PM CDT Hospital Encounter [facility] [place] [address] Renal cysts, acquired, bilateral Discharge Disposition: Discharge to home or self care 07/24/2025 Results Follow-Up [facility] Medical [facility] Internal Medicine [address] [place] [phone] Michael Wiggins MD Stool DNA - Cologuard 07/18/2025 Orders Only [facility] Health Information Management [address] [place] [id number] Scanning, Provider 07/05/2025 Orders Only [facility] Health Information Management [address] [place] [id number] Michael Wiggins MD 06/27/2025 3:45 PM CDT Office Visit [facility] Internal Medicine [address] [place] [phone] Michael Wiggins MD Chronic bilateral low back pain without sciatica (Primary Dx); Dyslipidemia; Hypertensive kidney disease; Morbid obesity (HCC); Stage 3a chronic kidney disease (HCC); BMI 34.0-34.9,adult from Last 3 Months Immunizations Immunization Administration [...] on file Legal Sex Male 3:58 AM PROGRAM MANAGER SLP Gender Identity Not on file Sexual Orientation Not on file 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 on file Not on f ile Obstetrics History Last Filed Vital Signs Vital Sign Reading Time Taken Comments Blood Pressure 128/70 06/27/2025 2:57 PM CDT Pulse 75 06/27/2025 2:57 PM CDT Temperature 36.5 C (97.7 F) 06/27/2025 2:57 PM CDT Respiratory Rate 18 06/27/2025 2:57 PM CDT Oxygen Saturation 98% 06/27/2025 2:57 PM CDT Inhaled Oxygen Concentration - - Weight 109.3 kg (241 lb) 06/27/2025 2:57 PM CDT Height 177.8 cm (5' 10) 06/27/2025 2:57 PM CDT Body Mass Index 34.58 06/27/2025 2:57 PM CDT Plan of Treatment Health Maintenance Due Date Last Done Comments Hepatitis B Screening 1978 Pneumococcal vaccine 65+ (1 of 1 - PCV) 2010 Zoster Vaccine (1 of 2) 2010 Well Visit 65+ 2025 Influenza Vaccine (#1) 2025 , 08/31/2021, 08/28/2020, Additional history exists Depression Screening 12/13/2025 12/13/2024, 07/05/2024, 01/16/2024, Additional history exists Fall Risk Assessment 12/13/2025 12/13/2024, 07/05/2024, 01/16/2024, Additional history exists Prostate Cancer Screening-PSA 01/29/2027, 04/03/2024, 09/06/2023, Additional history exists Colon Cancer Screening-DNA Stool 07/18/2028 07/18/2025, 02/27/2022, 08/30/2010 DTaP/Tdap/Td Vaccine (3 - Td or Tdap) 01/20/2033 01/20/2023, 03/14/2022 Colon Cancer Screening-CT Colonography Discontinued 08/30/2010 Colon Cancer Screening-Colonoscopy Discontinued 08/30/2010 Colon Cancer Screening-Sigmoidoscopy Discontinued 08/30/2010 Hepatitis C Screening Completed 12/20/2021 Colon Cancer Screening-FIT Discontinued 07/18, 02/27/2022, 08/30/2010 Procedures Procedure Name Priority Date/Time Associated Diagnosis Comments MRI ABDOMEN W WO CONTRAST Schedule Routine, Read Routine (OP Routine) 07/30/2025 11:08 AM CDT Renal cysts, acquired, bilateral STOOL DNA COLOGUARD Routine 07/18/2025 11:30 AM CDT Screening for colon cancer SCAN - RADIOLOGY/IMAGING 07/18/2025 SCAN - RADIOLOGY/IMAGING 07/05/2025 PSA SCREEN Routine 01/29/2025 8:39 AM CDT Prostate cancer screening HEPATITIS C ANTIBODY Routine 12/20/2021 9:03 AM PROGRAM MANAGER SLP Encounter for hepatitis C screening test for low risk patient HM COLONOSCOPY Routine 08/30/2010 from Last 3 Months or Most Recently Relevant to Health Maintenance Results * MRI Abdomen W WO Contrast (07/30/2025 11:08 AM CDT) Anatomical Region Laterality Modality Body N/A Magnetic Resonan ce 08/01/2025 2:46 PM CDT Narrative 08/01/2025 3:02 PM CDT EXAM DESCRIPTION: MRI ABDOMEN W WO CONTRAST REASON FOR STUDY: bosniak 2F cyst and pancreatic cyst follow up bosniak 2F cyst and pancreatic cyst follow up TECHNIQUE: MRI of the abdomen performed without and with intravenous contrast according to the pancreas protocol. All images stored on PACS. 3D images rendered on scanning unit and reviewed at time of interpretation. CONTRAST TYPE/DOSE: 20mL of GADOTERATE MEGLUMINE 0.5 MMOL/ML INTRAVENOUS SOLUTION (SO) injected via intravenous COMPARISON: MRI 01/04/2025; 11/01/2023 FINDINGS: PANCREAS: No peripancreatic edema or fluid collections. No ductal dilatation. Several cystic lesions of the throughout the pancreas are stable. For example, there is a 1.0 cm lesion in the pancreatic tail (series 301, image 22). 0.7 cm lesion in the pancreatic tail (series 301, image 22). LOWER CHEST: No effusion. LIVER: Normal size. No mass. No cysts. GALLBLADDER: No stones, wall thickening or pericholecystic fluid BILE DUCTS: No intrahepatic or extrahepatic ductal dilatation. SPLEEN: Normal size. No focal lesions. ADRENALS: Normal. KIDNEYS/URINARY TRACT: No hydronephrosis. Bilateral simple renal cysts are stable. Stable exophytic left renal upper pole 1.5 cm cyst demonstrating predominantly simple fluid signal, with a minimal amount of hemorrhagic/proteinaceous debris posteriorly. No thickened septations or enhancing nodularity are seen. No suspicious renal mass. GI: No visualized abnormality. PERITONEUM: No ascites. RETROPERITONEUM: No mass or adenopathy. VASCULATURE: No abdominal aortic aneurysm. MUSCULOSKELETAL: No acute findings. OTHER: No other abnormality. IMPRESSION: 1. 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 Follow-up MRI in 1 year is recommended. 2. Stable simple and minimally complex renal cysts. THIS IS AN ELECTRONICALLY VERIFIED FINAL REPORT 08/01/2025 3:02 PM - Electronically signed by Devan BURR T: Report ID: [id number] Reading Location: [place] [address] Procedure Note Devan Bello MD - 08/01/2025 EXAM DESCRIPTION: MRI ABDOMEN W WO CONTRAST REASON FOR STUDY: bosniak 2F cyst and pancreatic cyst follow up bosniak 2F cyst and pancreatic cyst follow up TECHNIQUE: MRI of the abdomen performed without and with intravenous contrast according to the pancreas protocol. All images stored on PACS.3D images rendered on scanning unit and reviewed at time of interpretation. CONTRAST TYPE/DOSE: 20mL of GADOTERATE MEGLUMINE 0.5 MMOL/ML INTRAVENOUS SOLUTION (SO) injected via intravenous COMPARISON: MRI 01/04/2025; 11/01/2023 FINDINGS: PANCREAS: No peripancreatic edema or fluid collections. Noductal dilatation. Several cystic lesions of the throughout the pancreas arestable. For example, there is a 1.0 cm lesion in the pancreatic tail (series 301, image 22). 0.7 cm lesion in the pancreatic tail (series 301, image 22). LOWER CHEST: No effusion. LIVER: Normal size. No mass. No cysts. GALLBLADDER: No stones, wall thickening or pericholecystic fluid BILE DUCTS: No intrahepatic or extrahepatic ductal dilatation. SPLEEN: Normal size. No focal lesions. ADRENALS: Normal. KIDNEYS/URINARY TRACT: No hydronephrosis. Bilateral simple renal cystsare stable. Stable exophytic left renal upper pole 1.5 cm cyst demonstrating predominantly simple fluid signal, with a minimal amount of hemorrhagic/proteinaceous debris posteriorly. No thickened septations or enhancing nodularity are seen. No suspicious renal mass. GI: No visualized abnormality. PERITONEUM: No ascites. RETROPERITONEUM: No mass or adenopathy. VASCULATURE: No abdominal aortic aneurysm. MUSCULOSKELETAL: No acute findings. OTHER: No other abnormality. IMPRESSION: 1. 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 Follow-up MRI in 1year is recommended. 2. Stable simple and minimally complex renal cysts. THIS IS AN ELECTRONICALLY VERIFIED FINAL REPORT 08/01/2025 3:02 PM - Electronically signed by Devan BURR T: Report ID: [id number] Reading Location: [place] [address] Elkin Juan MD [place] MRI PROCEDURES Final Result * Stool DNA - Cologuard (07/18/2025 11:30 AM CDT) Stool DNA - Cologuard Negative Negative [facility] (CLIA #:[id number]) Comment: The Cologuard (TM) test was performed on this specimen. NEGATIVE TEST RESULT. A negative Cologuard result [...] screened with both Cologuard and colonoscopy. (Mike Renee al, N Engl J Med 2014;370(14):1286- 1297) The normal value (reference range) for this assay is negative. COLOGUARD RE-SCREENING RECOMMENDATION: Periodic colorectal cancer screening is an important part of preventive healthcare for asymptomatic individuals at average risk for colorectal cancer. Following a negative Cologuard result, the [place] Cancer Society and U.S. Multi-Society Task Force screening guidelines recommend a Cologuard re-screening interval of 3 years. References: [place] [employer] Guideline for Colorectal Cancer Screening: https://www.cancer.org/cancer/cklib-pkubol-ilyoys/txambqomj-ffbylbwkm-yakwjao/ac s-rec ommendations.html.; Mike DK, Steph CR, Kenny GunnK, Colorectal Cancer Screening: Recommendations for Physicians and Patients from the U.S. Multi-Society Task Force on Colorectal Cancer Screening , Am J Gastroenterology 2017; 112:9713-2927. TEST DESCRIPTION: Composite algorithmic analysis of stool [...] screened with both Cologuard and colonoscopy. (Mike Renee al, N Engl J Med 2014;370(14):3270-0896.) Cologuard may produce a false negative or false positive result (no colorectal cancer or precancerous polyp present at colonoscopy follow up). A negative Cologuard test result does not guarantee the absence of CRC or advanced adenoma (pre-cancer). The current Cologuard screening interval is every 3 years. ([place] Cancer Society and U.S. Multi-Society Task Force). Cologuard performance data in a 10,000 patient pivotal study using colonoscopy as the reference method can be accessed at the following location: www.[facility].com/results. Additional description of the Cologuard test process, warnings and precautions can be found at www.colBUSINESS OWNERS ADVANTAGErd.com. Stool 07/18/2025 11:3 0 AM CDT 07/19/2025 8:44 AM CDT Michael Wiggins MD LAB BODY FLUIDS AND STOOLS ORDERABLES Final Result [facility] (CLIA #:[id number]) [address] [place] [address] * SCAN - RADIOLOGY/IMAGING (07/18/2025) Anatomical Region Laterality Modality Other us Provider Scanning Final Result * SCAN - RADIOLOGY/IMAGING (07/05/2025) Anatomical Region Laterality Modality Other Michael Wiggins MD Edited Resu lt - Final * PSA screen (01/29/2025 8:39 AM CDT) [facility] PSA 1.1 0.0 - 4.0 ng/mL [facility] - Comment: Sergio ECLIA methodology. According to the [place] [employer], Serum PSA should decrease and [...] 01/30/2025 9:09 AM CDT Performed at: - [address] [id number] Swing Frame Grinder Operator: Ricardo Obrien PhD, Phone: [phone] Michael Wiggins MD LAB BLOOD ORDERABLES Final Result [facility] - * Hepatitis C antibody (12/20/2021 9:03 AM PROGRAM MANAGER SLP) Hep C Ab 0.1 0.0 - 0.9 s/co ratio [facility] - 01 Comment: Negative: < 0.8 Indeterminate: 0.8 - 0.9 Positive: > 0.9 The CDC recommends that a positive HCV antibody result be followed up with a HCV Nucleic Acid Amplification test (754766). Blood specimen (specimen) 12/20/2021 9:03 AM PROGRAM MANAGER SLP 12/20/2021 Narrative [facility] - 12/21/2021 9:11 AM PROGRAM MANAGER SLP Performed at: [facility] [place] [id number] Swing Frame Grinder Operator: Ricardo Obrien PhD, Phone: [phone] Michael Wiggins MD LAB MICROBIOLOGY - GENERAL ORDERABLES Final Result Performing Organization Address City/[facility]/ZIP Co de Phone Number [facility] - 01 * COLONOSCOPY (08/30/2010) Pathologist Count includes the [facility] Colonoscopy Unknown Farida Venegas MD HEALTH MAINTENANCE Final Result from Last 3 Months or Most Recently Relevant to Health Maintenance Insurance [employer]/PPO Address: [facility] [address] [place] [address] MEDICARE Care Teams Follow Up Clerk Relationship Specialty Start Date End Date Michael Wiggins MD [address] [facility] [address] [address] PCP - General Internal Medicine 02/18/19
--- OUTSIDE RECORDS SUMMARY | 2025-08-27 09:11 | XMS_ITS | Encounter Summary ---
Author Organization [facility] Healthcare Address [address] [place] [address] Care Team Providers Care Propeller Engineer Name Role Phone Michael Wiggins MD Primary Care Provider [phone] Encounter Details Date Type Department Care Team (Late st Contact Info) Description 07/18/2025 Orders Only [facility] Health Information Management [address] [place] [phone] Scanning, Provider Social History Tobacco Use [...] on file Legal Sex Male 3:58 AM HOSPITALITY SERVICES MANAGER Gender Identity Not on file Sexual Orientation Not on file 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 on file Not on f ile documented as of this encounter Plan of Treatment Not on file documented as of this encounter Procedures Procedure Name Priority Date/Time Associated Diagnosis Comments SCAN - RADIOLOGY/IMAGING 07/18/2025 documented in this encounter Results * SCAN - RADIOLOGY/IMAGING (07/18/2025) Anatomical Region Laterality Modality Other us Provider Scanning Final Result documented in this encounter Visit Diagnoses Not on filedocumented in this encounter Care Teams Propeller Engineer Relationship Specialty Start Date End Date Michael Wiggins MD [address] [facility] [address] [place] [address] [place] [id number] PCP - General Internal Medicine 02/18/19 documented as of this encounter
[2025-08-27 09:45] LABS: Hematocrit 42.6 % (42.0-52.0); Hemoglobin 14.0 g/dL (14.0-18.0)
[2025-08-27 10:00] LABS: Hemoglobin A1C 5.4 % (<5.7)
[2025-08-27 10:03] LABS: Albumin Level 4.3 g/dL (3.5-5.1); Estimated Glomerular Filt Rate 56; Glucose 119 mg/dL (65-110)
== END 2025-08-27 09:08 | disposition home or self-care (01) ==
PROVIDERS: PCP Internal Medicine; Visit Provider Orthopaedic Surgery
DX: M75.101 Unspecified rotator cuff tear or rupture of right shoulder, not specified as traumatic (principal); E78.5 Hyperlipidemia, unspecified; Z01.818 Encounter for other preprocedural examination; M19.011 Primary osteoarthritis, right shoulder
CPT/HCPCS: 36415; 73200; 82040; 82565; 82947; 83036; 85014; 85018